=== PATIENT | female | born 1950 | race Caucasian/White ===

== ENCOUNTER 2016-06-24 10:37 | Inpatient (IN) | payer MEDICARE ==
[~2016-06-24] VITALS: Ht 149.9 cm; Wt 88.0 kg
[2016-06-24] VITALS (14 sets, daily range): BP systolic 78–132; BP diastolic 45–85; PULSE 64–102; RESP 16–22; TEMP 97.4–98.1; O2SAT 95–100
[~2016-06-24 10:37] MED LIST: ATEN-102 PO; FLON0.053; HYDR-2768 PO; TYLE3 PO; Z.0.NO CURRENT MEDS; ZITHTAB6 PO
[2016-06-24] MEDS ORDERED: metroNIDAZOLE 500 MG INJ 100 ML IV ONE (11:30)
[2016-06-24] MEDS ORDERED: CIPROFLOXACIN 400 MG PREMIX 200 ML IV ONE (11:30)
[2016-06-24] MEDS ORDERED: SODIUM CHLOR 0.9% 1000 ML INJ 1,000 ML IV ONE ×2 (11:30)
[2016-06-24] MEDS ORDERED: SODIUM CHLORID 0.9% 500 ML INJ 500 ML IV ONE (11:30)
[2016-06-24] MEDS ORDERED: ATEN50TA PO (11:36)
[2016-06-24] MEDS ORDERED: METR250 PO (11:36)
[2016-06-24] MEDS ORDERED: CIPR250T52 PO (11:36)
--- NOTE | 2016-06-24 11:41 | PD ---
HPI Chief Complaint: Abdominal Pain Time Seen by Provider: 11:18 Travel History International Travel<30 days: No Contact w/Intl Traveler<30days: No Traveled to known affect area: No History of Present Illness HPI This is a 66 year old female who presents to the emergency department with left lower quadrant pain, constant since last week, waxing from sharp to dull, moderate severity. Pt. had a CT performed on Friday demonstrating diverticulitis with possible abscess formation. She was started on antibiotics 4 days ago which she has been taking, but this morning felt very weak, fatigued , dehydrated and has been having chills. Pt also has been having some loose stools. PFSH Past Medical History Cardiovascular Problems: Yes (HTN) Diminished Hearing: No Hypertension: Yes Respiratory: Yes (Asthma ) Influenza Vaccination: No ?: Not Menopausal: Yes Past Surgical History Gynecologic Surgery: Yes (RIGHT OVARY REMOVED) Hysterectomy: Yes Tonsillectomy: Yes Social History Alcohol Use: Yes (SOCIAL) Tobacco Use: No Substance Use: No Allergies-Medications (Allergen,Severity, Reaction): Coded Allergies: Penicillin (Verified Allergy, Severe, Anaphylaxis, 06/24/16) Latex (Verified Allergy, Intermediate, ITCH/RASH, 06/24/16) Reported Meds & Prescriptions Reported Meds & Active Scripts Active Reported Flagyl (Metronidazole) 250 Mg Tab 250 Mg PO QID Cipro (Ciprofloxacin HCl) 250 Mg Tab 250 Mg PO BID Atenolol 50 Mg Tab 50 Mg PO DAILY Review of Systems Except as stated in HPI: all other systems reviewed are Neg Physical Exam Narrative GENERAL:Ill appearing SKIN: Pale and clammy HEAD: Atraumatic. Normocephalic. EYES: Pupils equal and round. No injection or drainage. ENT: Dry mucous membranes NECK: Trachea midline. CARDIOVASCULAR: Regular rate and rhythm. No murmur appreciated. RESPIRATORY: Clear to auscultation. Breath sounds equal bilaterally. GASTROINTESTINAL: Abdomen soft, tender to palpation in the left lower quadrant with rebound and guarding. MUSCULOSKELETAL: No obvious deformities. NEUROLOGICAL: Awake and alert. No obvious cranial nerve deficits. Moving all extremities. PSYCHIATRIC: Appropriate mood and affect; insight and judgment normal. Data Data Last Documented VS Vital Signs Date Time Temp Pulse Resp B/P Pulse Ox O2 Delivery O2 Flow Rate FiO2 06/24/16 14:01 74 20 121/66 99 Room Air 06/24/16 13:32 2 06/24/16 11:27 97.4 Orders Complete Blood Count With Diff (06/24/16 11:21) Comprehensive Metabolic Panel (06/24/16 11:21) Prothrombin Time / Inr (Pt) (06/24/16 11:21) Act Partial Throm Time (Ptt) (06/24/16 11:21) Lactic Acid Sepsis Protocol (06/24/16 11:21) Urinalysis - C+S If Indicated (06/24/16 11:21) Blood Culture (06/24/16 11:21) Blood Glucose (06/24/16 11:21) Ecg Monitoring (06/24/16 11:21) Iv Access Insert/Monitor (06/24/16 11:21) Oximetry (06/24/16 11:21) Oxygen Administration (06/24/16 11:21) Sodium Chlor 0.9% 1000 Ml Inj (Ns 1000 M (06/24/16 11:30) Sodium Chlor 0.9% 1000 Ml Inj (Ns 1000 M (06/24/16 11:30) Sodium Chlorid 0.9% 500 Ml Inj (Ns 500 M (06/24/16 11:30) Ciprofloxacin 400 Mg Premix (Cipro 400 M (06/24/16 11:30) Metronidazole 500 Mg Inj (Flagyl 500 Mg (06/24/16 11:30) Ct Abd/Pel W/O Iv Contrast (06/24/16 ) Morphine Inj (Morphine Inj) (06/24/16 12:45) Urine Culture (06/24/16 14:00) Admit Order (Ed Use Only) (06/24/16 14:24) Labs Laboratory Tests Test 06/24/16 06/24/16 11:50 14:00 White Blood Count 12.5 TH/MM3 Red Blood Count 3.75 MIL/MM3 Hemoglobin 11.4 GM/DL Hematocrit 33.5 % Mean Corpuscular Volume 89.2 FL Mean Corpuscular Hemoglobin 30.4 PG Mean Corpuscular Hemoglobin 34.0 % Concent Red Cell Distribution Width 15.0 % Platelet Count 312 TH/MM3 Mean Platelet Volume 9.3 FL Neutrophils (%) (Auto) 91.1 % Lymphocytes (%) (Auto) 2.7 % Monocytes (%) (Auto) 3.3 % Eosinophils (%) (Auto) 0.1 % Basophils (%) (Auto) 2.8 % Neutrophils # (Auto) 11.5 TH/MM3 Lymphocytes # (Auto) 0.3 TH/MM3 Monocytes # (Auto) 0.4 TH/MM3 Eosinophils # (Auto) 0.0 TH/MM3 Basophils # (Auto) 0.3 TH/MM3 CBC Comment AUTO DIFF Differential Total Cells 100 Counted Neutrophils % (Manual) 43 % Band Neutrophils % 39 % Lymphocytes % 3 % Monocytes % 3 % Neutrophils # (Manual) 11.8 TH/MM3 Metamyelocytes 11 % Myelocytes 1 % Differential Comment FINAL DIFF MANUAL Platelet Estimate NORMAL Platelet Morphology Comment NORMAL Red Cell Morphology Comment NORMAL Prothrombin Time 16.5 SEC Prothromb Time International 1.5 RATIO Ratio Activated Partial 35.2 SEC Thromboplast Time Sodium Level 137 MEQ/L Potassium Level 3.5 MEQ/L Chloride Level 99 MEQ/L Carbon Dioxide Level 26.5 MEQ/L Anion Gap 12 MEQ/L Blood Urea Nitrogen 18 MG/DL Creatinine 1.80 MG/DL Estimat Glomerular Filtration 28 ML/MIN Rate Random Glucose 108 MG/DL Lactic Acid Level 2.2 mmol/L Calcium Level 8.9 MG/DL Total Bilirubin 1.3 MG/DL Aspartate Amino Transf 16 U/L (AST/SGOT) Alanine Aminotransferase 9 U/L (ALT/SGPT) Alkaline Phosphatase 80 U/L Total Protein 6.6 GM/DL Albumin 2.3 GM/DL Urine Collection Type CATH Urine Color DONNA Urine Turbidity CLOUDY Urine pH 5.0 Urine Specific [place] 1.019 Urine Protein 100 mg/dL Urine Glucose (UA) 100 mg/dL Urine Ketones TRACE mg/dL Urine Occult Blood NEG Urine Nitrite POS Urine Bilirubin NEG Urine Leukocyte Esterase TRACE Urine RBC 0-3 /hpf Urine WBC 9-14 /hpf Urine Amorphous Sediment LARGE Urine Hyaline Casts 0-2 /lpf Urine White Blood Cell Casts 0-2 /lpf Microscopic Urinalysis Comment CULTURE INDICATED MDM Medical Decision Making Medical Screen Exam Complete: Yes Emergency Medical Condition: Yes Interpretation(s) Hypotensive Leukocytosis 39% bandemia Renal insufficiency creatinine 1.8 Urinalysis: Urinary tract infection Free intraperitoneal air with scattered diverticula Differential Diagnosis Diverticulitis, diverticular abscess, perforated diverticulitis, sepsis Narrative Course This is a 66-year-old female who presents to the emergency department with worsening left lower quadrant abdominal pain in the setting of a known diverticular abscess that was diagnosed several days ago. She's been on antibiotics. She is placed in a monitor and an IV was established. She was found to be hypotensive. She was given Cipro and Flagyl IV up front as well as 2.5 L of IV fluid. Blood pressure responded to IV hydration. CT was performed which demonstrates perforation. I spoke to Dr. Zazueta who accepted the patient in transfer to the main hospital and requested she be admitted to the intensive care unit. I spoke to Dr. Lama who is aware of the patient. Critical Care Narrative Aggregate critical care time was 45 minutes. Time to perform other separately billable procedures was not included in the critical care time. My time did not include minutes spent treating any other patients simultaneously or on activities that did not directly contribute to the patient's treatment. The services I provided to this patient were to treat and/or prevent clinically significant deterioration that could result in: Disability, I provided critical care services requiring my management, as noted below: Chart data review, documentation time, medication orders and management, vital sign assessments/reviewing monitor data, ordering and reviewing lab tests, ordering and interpreting/reviewing x-rays and diagnostic studies, care of the patient and discussion of the patient with the admitting physicians. Diagnosis Primary Impression: Diverticulitis of colon with perforation Additional Impression: Severe sepsis Admitting Information Admitting Physician Requests: Admit Ana Laura Rios MD Jun 24, 2016 11:41
[2016-06-24] MEDS ORDERED: PHENYLEPH/NS 1000 MCG/10 ML SYR IV ONE (12:00)
[2016-06-24] MEDS ORDERED: LACTATED RINGER'S 1000 ML INJ 2,000 ML IV ONE (12:00)
[2016-06-24] MEDS ORDERED: PROPOFOL 200 MG/20 ML AMP IV ONE (12:00)
[2016-06-24] MEDS ORDERED: ONDANSETRON HCL 4 MG/2 ML VIAL IV PUSH ONE (12:00)
[2016-06-24] MEDS ORDERED: ePHEDrine/NS 25 MG/5 ML SYR IV ONE (12:00)
[2016-06-24 12:01] LABS: AUTOMATED NEUTROPHIL # 11.5 TH/MM3 (1.8-7.7); BASOPHIL # 0.3 TH/MM3 (0-0.2); BASOPHIL % 2.8 % (0.0-2.0); EOSINOPHIL % 0.1 % (0.0-4.0); HEMATOCRIT 33.5 % (35.0-46.0); LYMPH % 2.7 % (9.0-44.0); LYMPHOCYTE # 0.3 TH/MM3 (1.0-4.8); MEAN CELL VOLUME 89.2 FL (80.0-100.0); MEAN CORPUSCULAR HEMOGLOBIN 30.4 PG (27.0-34.0); MONO % 3.3 % (0.0-8.0); NEUT % 91.1 % (16.0-70.0); PLATELET COUNT 312 TH/MM3 (150-450); RED BLOOD COUNT 3.75 MIL/MM3 (4.00-5.30); WHITE BLOOD COUNT 12.5 TH/MM3 (4.0-11.0)
[2016-06-24 12:02] LABS: HEMO FLAGS AUTO DIFF
[2016-06-24 12:16] LABS: CHLORIDE 99 MEQ/L (98-107); POTASSIUM 3.5 MEQ/L (3.5-5.1); SODIUM (NA) 137 MEQ/L (136-145)
[2016-06-24 12:20] LABS: ANION GAP 12 MEQ/L (5-15); APTT (PATIENT) 35.2 SEC (24.3-30.1); BICARBONATE 26.5 MEQ/L (21.0-32.0); BLOOD UREA NITROGEN 18 MG/DL (7-18); INTERNATIONAL NORMALIZED RATIO 1.5 RATIO; PROTHROMBIN TIME - PATIENT 16.5 SEC (9.8-11.6)
[2016-06-24 12:23] LABS: ALT (GPT) 9 U/L (10-53); AST (GOT) 16 U/L (15-37); GLOMERULAR FILTRATION RATE 28 ML/MIN (>89)
[2016-06-24 12:24] LABS: TOTAL BILIRUBIN ADULT 1.3 MG/DL (0.2-1.0)
[2016-06-24 12:26] LABS: ALKALINE PHOSPHATASE 80 U/L (45-117)
[2016-06-24] MEDS ORDERED: MORPHINE SULFATE 4 MG/ML INJ IV PUSH ONE ×3 (12:45→15:30)
[2016-06-24 12:48] LABS: BANDS 39 % (0-6); METAMYELOCYTES 11 % (0-1); MYELOCYTES 1 % (0-0); NEUTROPHIL # MANUAL DIFF 11.8 TH/MM3 (1.8-7.7); POLYS (SEG NEUTROPHILS) 43 % (16-70); WBC DIFF SAMPLE 100
[2016-06-24 12:49] LABS: PLATELET ESTIMATE SMEAR NORMAL (NORMAL); PLATELET MORPHOLOGY NORMAL (NORMAL); SCAN/DIFF FINAL DIFF MANUAL
[2016-06-24 13:58] LABS: LACTIC ACID GHOST NOT REPORTABLE
[2016-06-24 14:08] LABS: BLOOD, URINE NEG (NEG); GLUCOSE,URINE 100 mg/dL (NEG); KETONE, URINE TRACE mg/dL (NEG)
[2016-06-24 14:12] LABS: METHOD OF COLLECTION CATH; NITRITE,URINE POS (NEG); URINE COLOR AMBER (YELLW/STRAW)
[2016-06-24 14:14] LABS: COMMENT (UR) CULTURE INDICATED; CULTURE IF INDICATED CULTURE INDICATED; HYALINE CAST, URINE 0-2 /lpf (RARE); RBC, URINE 0-3 /hpf (0-3); WHITE BLOOD CELL CAST, URINE 0-2 /lpf
--- NOTE | 2016-06-24 14:50 | RADHPO ---
EXAM DATE/TIME: 06/24/2016 13:08 [place] COMPARISON: No previous studies available for comparison. INDICATIONS : Left lower quadrant pain for one week. ORAL CONTRAST: No oral contrast ingested. RADIATION DOSE: 22.12 CTDIvol (mGy) MEDICAL HISTORY : Hypertension. SURGICAL HISTORY : Hysterectomy. ENCOUNTER: Initial ACUITY: 1 week PAIN SCALE: 4/10 LOCATION: Left lower quadrant TECHNIQUE: Volumetric scanning of the abdomen and pelvis was performed. Using automated exposure control and ad justment of the mA and/or kV according to patient size, radiation dose was kept as low as reasonably achievable to obtain optimal diagnostic quality images. FINDINGS: There is cardiomegaly. The lung bases are clear. There is no pericardial effusion. Trace ascites is evident. There is trace free air present in the abdomen. This free air extends down into the pelvis. There a re multiple diverticula in the pelvis without obvious diverticulitis. 6 cm pre-sacral abscess is not ed. Right and left kidneys are unremarkable. Review of bone windows reveals degenerative changes in the lumbar spine. CONCLUSION: Free intraperitoneal air with evidence for diverticula disease in the pelvis. CT scan on 06/21/2016 had shown an abscess sitting just anterior to the sacrum. This is still there but more difficult to see because of all the induration. This is probably the source of the free air. Gurdeep Green MD FACR on June 24, 2016 at 13:30 Board Certified Radiologist. This report was verified electronically.
[2016-06-24] MEDS: AZTREONAM INJ 1,000 MG in SODIUM CHLORIDE 0.9% INJ 100 ML IV SCH (16:17)
[2016-06-24] MEDS ORDERED: SODIUM CHLOR 0.9% 1000 ML INJ 1,000 ML IV SCH (18:55)
[2016-06-24] MEDS ORDERED: ACETAMINOPHEN 325 MG TAB PO PRN (19:00)
[2016-06-24] MEDS ORDERED: SODIUM CHLORIDE 0.9% FLUSH 5 ML FLUSH IV FLUSH PRN (19:00)
[2016-06-24] MEDS ORDERED: MORPHINE SULFATE 4 MG/ML INJ IV PRN (19:00)
[2016-06-24] MEDS ORDERED: ONDANSETRON HCL 4 MG/2 ML VIAL IV PRN (19:00)
[2016-06-24] MEDS ORDERED: MISCELLANEOUS NURSING INFORMATION XX SCH (19:00)
[2016-06-24] MEDS ORDERED: CHLORHEXIDINE GLUCONATE 2 % 1 PACK (2 CLOTHS) TOP PRN (19:00)
[2016-06-24] MEDS ORDERED: ACETAMINOPHEN/HYDROcodone 325 MG/5 MG TAB PO PRN (19:00)
--- NOTE | 2016-06-24 19:19 | PD.CONS ---
[facility] Service Critical Care Medicine Consult Requested By Dr. Zazueta Reason for Consult Critical care management/diverticulitis perforation Primary Care Physician Noman Mariscal MD History of Present Illness 66-year-old female. Date of admission 06/24/2016. Date of consultation 06/24/2016. past medical history includes hypertension and asthma. She originally presents to the [facility] emergency department with worsening left lower quadrant abdominal pain 1 month in the setting of a known diverticular abscess that was diagnosed 2 on CAT scan she's been on antibiotics. She has had abdominal pain 1 month. She's shamir urinary tract infection treated 1 with antibiotics. She has had intermittent constipation diarrhea. Upon arrival, She was found to be hypotensive. She was given Cipro 400 mg and Flagyl 500 mg IV and 2.5 L of IV fluid. Blood pressure responded to IV hydration. WBC 12. Creatinine 1.8. CT A/P was performed which demonstrates free air/perforation [address] Zazueta accepted the patient in transfer to the [facility] hospital and requested she be admitted to the intensive care unit. Review of Systems Constitutional: COMPLAINS OF: Fatigue, Fever, Weight loss, DENIES: Weight gain Endocrine: DENIES: Polydipsia, Polyuria Eyes: DENIES: Blurred vision Ears, nose, mouth, throat: DENIES: Odynophagia Respiratory: DENIES: Apneas Cardiovascular: DENIES: Chest pain Gastrointestinal: COMPLAINS OF: Abdominal pain, Constipation, Diarrhea, Nausea , DENIES: Vomiting Genitourinary: DENIES: Urinary frequency Musculoskeletal: DENIES: Joint pain Integumentary: DENIES: Rash Hematologic/lymphatic: DENIES: Bruising Immunologic/allergic: DENIES: Eczema Psychiatric: DENIES: Anxiety, Confusion Past Family Social History Allergies: Coded Allergies: Penicillin (Verified Allergy, Severe, Anaphylaxis, 06/24/16) Latex (Verified Allergy, Intermediate, ITCH/RASH, 06/24/16) Past Medical History Asthma Hypertension Past Surgical History Right oophorectomy Hysterectomy T&A Reported Medications Flagyl (Metronidazole) 250 Mg Tab 250 Mg PO QID Cipro (Ciprofloxacin HCl) 250 Mg Tab 250 Mg PO BID Atenolol 50 Mg Tab 50 Mg PO DAILY Active Ordered Medications Reviewed in EMR Family History Mother and father not contributory Social History Social Alcohol. No tobacco or IV drug use Physical Exam Vital Signs Vital Signs Date Time Temp Pulse Resp B/P Pulse Ox O2 Delivery O2 Flow Rate FiO2 06/24/16 18:44 72 18 100/60 97 Nasal Cannula 2 06/24/16 17:52 72 18 92/45 99 Nasal Cannula 2 06/24/16 17:17 72 18 103/52 96 Nasal Cannula 2 06/24/16 16:38 72 18 88/52 95 Nasal Cannula 2 06/24/16 15:59 16 06/24/16 15:00 72 18 113/85 98 Nasal Cannula 2 06/24/16 14:01 74 20 121/66 99 Room Air 06/24/16 13:32 102 18 100/67 97 Nasal Cannula 2 06/24/16 13:30 16 06/24/16 12:32 70 16 101/62 100 Nasal Cannula 2 06/24/16 12:00 64 16 85/55 100 Nasal Cannula 2 06/24/16 11:27 70 18 80/55 96 Nasal Cannula 2 06/24/16 11:27 97.4 70 18 80/55 96 Room Air 06/24/16 11:27 Nasal Cannula 2 06/24/16 10:59 97.5 73 18 78/50 100 Physical Exam GENERAL: 66-year-old female, critically ill currently resting in bed in mild distress secondary to pain SKIN: Warm and dry. No rash HEAD: Atraumatic. Normocephalic. EYES: Pupils equal and round about 3 mm bilaterally and reactive. No scleral icterus. No injection or drainage. ENT: No nasal bleeding or discharge. Mucous membranes pink and dry. Oropharynx without erythema NECK: Trachea midline. No JVD. CARDIOVASCULAR: Regular rate and rhythm. S1, S2. No S4. Without murmur RESPIRATORY: Clear to auscultation. Breath sounds equal bilaterally. GASTROINTESTINAL: Abdomen soft, tender palpation right and left lower quadrants. Voluntary guarding. No rigidity. Hypoactive bowel sounds. MUSCULOSKELETAL: Extremities without significant peripheral edema. No obvious deformities. NEUROLOGICAL: Awake and alert. No obvious cranial nerve deficits. Motor grossly within normal limits. Five out of 5 muscle strength in the arms and legs. Normal speech. PSYCHIATRIC: Appropriate mood and affect; insight and judgment normal. Laboratory Laboratory Tests Test 06/24/16 06/24/16 06/24/16 11:50 14:00 14:50 White Blood Count 12.5 Red Blood Count 3.75 Hemoglobin 11.4 Hematocrit 33.5 Mean Corpuscular Volume 89.2 Mean Corpuscular Hemoglobin 30.4 Mean Corpuscular Hemoglobin 34.0 Concent Red Cell Distribution Width 15.0 Platelet Count 312 Mean Platelet Volume 9.3 Neutrophils (%) (Auto) 91.1 Lymphocytes (%) (Auto) 2.7 Monocytes (%) (Auto) 3.3 Eosinophils (%) (Auto) 0.1 Basophils (%) (Auto) 2.8 Neutrophils # (Auto) 11.5 Lymphocytes # (Auto) 0.3 Monocytes # (Auto) 0.4 Eosinophils # (Auto) 0.0 Basophils # (Auto) 0.3 CBC Comment AUTO DIFF Differential Total Cells 100 Counted Neutrophils % (Manual) 43 Band Neutrophils % 39 Lymphocytes % 3 Monocytes % 3 Neutrophils # (Manual) 11.8 Metamyelocytes 11 Myelocytes 1 Differential Comment FINAL DIFF MANUAL Platelet Estimate NORMAL Platelet Morphology Comment NORMAL Red Cell Morphology Comment NORMAL Prothrombin Time 16.5 Prothromb Time International 1.5 Ratio Activated Partial 35.2 Thromboplast Time Sodium Level 137 Potassium Level 3.5 Chloride Level 99 Carbon Dioxide Level 26.5 Anion Gap 12 Blood Urea Nitrogen 18 Creatinine 1.80 Estimat Glomerular Filtration 28 Rate Random Glucose 108 Lactic Acid Level 2.2 1.9 Calcium Level 8.9 Total Bilirubin 1.3 Aspartate Amino Transf 16 (AST/SGOT) Alanine Aminotransferase 9 (ALT/SGPT) Alkaline Phosphatase 80 Total Protein 6.6 Albumin 2.3 Urine Collection Type CATH Urine Color DONNA Urine Turbidity CLOUDY Urine pH 5.0 Urine Specific [place] 1.019 Urine Protein 100 Urine Glucose (UA) 100 Urine Ketones TRACE Urine Occult Blood NEG Urine Nitrite POS Urine Bilirubin NEG Urine Leukocyte Esterase TRACE Urine RBC 0-3 Urine WBC 9-14 Urine Amorphous Sediment LARGE Urine Hyaline Casts 0-2 Urine White Blood Cell Casts 0-2 Microscopic Urinalysis Comment CULTURE INDICATED Date/Time Procedure Status Source Growth 06/24/16 14:00 Urine Culture Received Urine Catheterized Urine Pending 06/24/16 12:10 Aerobic Blood Culture Received Blood Peripheral Pending 06/24/16 12:10 Anaerobic Blood Culture Received Blood Peripheral Pending Result Diagram: 06/24/16 1150 06/24/16 1150 Imaging Last Impressions Abdomen/Pelvis CT 06/24/16 0000 Signed Impressions: Service Date/Time: Friday, June 24, 2016 13:08 - CONCLUSION: Free intraperitoneal air with evidence for diverticula disease in the pelvis. CT scan on 06/21/2016 had shown an abscess sitting just anterior to the sacrum. This is still there but more difficult to see because of all the induration. This is probably the source of the free air. Gurdeep Green MD FACR Assessment and Plan Assessment and Plan Neuro/Psych: [place]/morphine for pain management Acetaminophen for fever CV: Lactic acidosis/resolved History of hypertension Received 2.5 L normal saline in route. Procedures 1 L LR. Baseline on normal saline at 84 cc an hour. Currently not requiring vasopressor therapy. Follow-up on EKG Is on atenolol 50 mg by mouth daily at home. Held in light of hypotension Resp: History of asthma Nasal cannula to maintain saturations greater than equal to 92% Incentive spirometry while awake As needed bronchodilator therapy GI: Likely diverticular perforation History of diverticular abscess CT abdomen/pelvis 2/3 revealed free air. 6 cm presacral abscess. See ID for antibiotic coverage. Evaluated with Dr. Zazueta/general surgery. Recommendations to follow Protonix for GI prophylaxis Colace/as needed Senokot for bowel regimen : [place] for accurate I's and O's in a critically ill patient Endo: Sliding-scale insulin if indicated to maintain euglycemia Renal: Acute kidney injury? Likely dehydration/prerenal. Crowding currently 1.8. Will get additional 1 L bolus of LR No signs of hydronephrosis on CAT scan abdomen/pelvis. Check urine eosinophils electrolytes Recheck BMP in a.m. Heme: Leukocytosis Normocytic anemia Likely secondary to infection. CBC/coags in AM. Monitor trends ID: Sepsis secondary to intra-abdominal infection Urinary Tract infection Day 1 Cipro/Flagyl/aztreonam Pertinent cultures 2/3 - blood cultures 2 - pending 2/3 - UA -pending MSK: PT evaluate and treat FEN: Replace electrolytes as clinically indicated Access - Utilize peripheral IV. Central line if indicated Prophylaxis - GI - Protonix - DVT - SCD/pharmacological proph contraindicated poss surg interrvention Critical Care: The total critical care time was 65 minutes. Time to perform other separately billable procedures was not included in the critical care time. Code Status Full code Discussed Condition With Patient. Care plan discussed and all questions answered Anoop Siegel MD Jun 24, 2016 19:19
[2016-06-24] MEDS ORDERED: LACTATED RINGER'S 1000 ML INJ 1,000 ML IV ONE (19:30)
[2016-06-24] MEDS: metroNIDAZOLE 500 MG INJ 100 ML IV SCH (20:24)
[2016-06-24] MEDS ORDERED: SODIUM CHLORIDE 0.9% FLUSH 5 ML FLUSH IV FLUSH SCH (21:00)
[2016-06-24] MEDS ORDERED: ACETAMINOPHEN 1000 MG/100 ML VIAL IV ONE (21:33)
[2016-06-24] MEDS ORDERED: ARTIFICIAL TEARS OPTH OINT 3.5 APPLIC/3.5 GM TUBO ONE (21:48)
--- NOTE | 2016-06-24 22:14 | MH ---
cc: TERRELL ZAZUETA M.D. DATE OF ADMISSION 06/24/2016 REASON FOR ADMISSION Perforated sigmoid diverticulitis. HISTORY OF PRESENT ILLNESS The patient is a 66-year-old female who was noted to have left lower quadrant pain constant since last week. The patient had CT performed on Friday demonstrated diverticulitis with possible abscess formation. She was started on antibiotics four days ago but felt worse, and has been having chills and loose stools. She was seen in [place] and was found to have some small bubbles of free air and increasing pain with a hypotension in the emergency department. She was given 2 liters of fluid by Dr. Rios and resuscitated. PAST MEDICAL HISTORY Includes: 1. Hypertension. 2. History of asthma. PAST SURGICAL HISTORY Past surgery includes: 1. Right ovary removed. 2. And hysterectomy. SOCIAL HISTORY The patient has social alcohol use. She does not smoke or use other substances. ALLERGIES SHE HAS AN ALLERGY TO PENICILLIN WHICH IS SEVERE AND CAUSES ANAPHYLAXIS AND LATEX WHICH CAUSES AN ITCH AND RASH. MEDICATIONS 1. The patient is on Cipro and Flagyl now. 2. She takes atenolol 50 mg p.o. q. day. PHYSICAL EXAMINATION GENERAL: Reveals a female who is uncomfortable. VITAL SIGNS: BP 100/60, pulse 72, respirations 18. 97% saturation on 2 liters nasal cannula. Temperature is 97.4. The patient's pressure was in the 80s initially in [place]. CHEST: Clear to auscultation. CARDIOVASCULAR: Exam reveals regular rate and rhythm. ABDOMEN: Distended and tender diffusely with significant tenderness in the lower abdomen with guarding. LABORATORY DATA Laboratory values demonstrate WBC of 12.5 with 39% bands. Hemoglobin and hematocrit 11.4 and 33.5 with 312,000 platelets. Chemistries demonstrate BUN of 18, creatinine of 1.8, bilirubin is 1.3, alkaline phos 80. Lactate level was 2.2 is now decreased to 1.9. IMAGING Demonstrates free intraperitoneal air with evidence for diverticular disease. There was an abscess just anterior to the sacrum. It is still there but more difficult to see because of induration. This is undrainable according to Dr. Green who I reviewed the CT scan with. ASSESSMENT Perforated sigmoid diverticulitis with worsening symptoms. PLAN I have discussed with the patient and her and daughter who is a nurse, the need for urgent surgery at this time given the fact that she is deteriorating. I discussed with them the need for sigmoid colectomy and temporary colostomy placement. A discussed risks of surgery including but not limited to bleeding, the increased risk of infection with wound infection and abscess formation, as well as adhesion formation. I did discuss that this is a reversible event and discussed with her convalescence and alternatives. I did not recommend that we wait and manage this nonoperatively. She is agreeable to proceed. Terrell Zazueta MD MAF/KK /9:50 PM /10:04 PM
[2016-06-24] MEDS: BUPIVACAINE/EPINEPHRINE 0.25% PF 30 ML VIAL ONE (22:19)
[2016-06-25] VITALS (14 sets, daily range): BP systolic 105–139; BP diastolic 53–63; PULSE 75–83; RESP 15–24; TEMP 97.8–98.4; O2SAT 96–99
[2016-06-25] MEDS: D5-NS + KCL 20 MEQ INJ 1,000 ML IV SCH ×3 (00:16→09:50)
--- NOTE | 2016-06-25 00:16 | HHI.PR ---
cc: Emmett Zazueta MD Immediate Post Op Note Procedure Date: Jun 25, 2016 Pre Op Diagnosis: Perforated diverticulitis Post Op Diagnosis: Same vs. perforated neoplasm Surgeon: Emmett Zazueta Power Manager(s): Migdalia Padilla MS3 Procedure: Exploratory laparotomy, sigmoid resection, end colostomy with Awad's pouch Findings: Pelvic mass adherent to right side of colon; abscess vs. tumor Additional Information: Large amount purulent material in abdomen Complications: None Specimen(s) removed: Sigmoid colon Right ovarian remnant Estimated blood loss: 100 ml Anesthesia: General Drains: [place] IVF (2000 ml) Patient to: PACU Patient Condition: Good Date/Time of Procedure: SEE SURGICAL CARE RECORD Emmett Zazueta MD Jun 25, 2016 00:15
[2016-06-25] MEDS ORDERED: SUGAMMADEX SODIUM 200 MG/2 ML VIAL IV PUSH ONE ×2 (00:20)
[2016-06-25] MEDS ORDERED: RESP: ALBUTEROL 2.5 MG/3 ML NEB (PRN) ONE (00:20)
[2016-06-25] MEDS ORDERED: Post-op Orders (for Pharmacy) MISC XX ONE (00:30)
[2016-06-25] MEDS ORDERED: DO NOT ADM ANY ANTICOAGULANT DRUGS XX PRN (00:45)
[2016-06-25] MEDS ORDERED: fentaNYL CITRATE 250 MCG/5 ML AMP ONE (00:46)
[2016-06-25] MEDS: MORPHINE SULFATE 30 MG/30 ML PCA IV SCH ×2 (02:27→13:27)
[2016-06-25] MEDS: AZTREONAM INJ 1,000 MG in SODIUM CHLORIDE 0.9% INJ 100 ML IV SCH ×4 (02:33→23:50)
[2016-06-25] MEDS: PANTOPRAZOLE SODIUM 40 MG VIAL IV SCH (02:34)
[2016-06-25] MEDS: CHLORHEXIDINE GLUCONATE 2 % 1 PACK (2 CLOTHS) TOP SCH (04:00)
[2016-06-25 05:04] LABS: AUTOMATED NEUTROPHIL # 12.8 TH/MM3 (1.8-7.7); BASOPHIL % 0.1 % (0.0-2.0); EOSINOPHIL # 0.1 TH/MM3 (0-0.4); EOSINOPHIL % 0.7 % (0.0-4.0); HEMATOCRIT 28.1 % (35.0-46.0); HEMO FLAGS DIFF FINAL; LYMPH % 2.1 % (9.0-44.0); LYMPHOCYTE # 0.3 TH/MM3 (1.0-4.8); MEAN CELL VOLUME 89.8 FL (80.0-100.0); MEAN CORPUSCULAR HGB CONC 33.4 % (32.0-36.0); MONO % 1.4 % (0.0-8.0); NEUT % 95.7 % (16.0-70.0); PLATELET COUNT 258 TH/MM3 (150-450); RED BLOOD COUNT 3.12 MIL/MM3 (4.00-5.30); RED CELL DISTRIBUTION WIDTH 16.1 % (11.6-17.2); WHITE BLOOD COUNT 13.3 TH/MM3 (4.0-11.0)
[2016-06-25] MEDS: RESP: ALBUTEROL 2.5 MG/IPRATROPIUM 0.5 MG NEB (PRN) INH ×3 (05:13→15:25)
[2016-06-25 05:15] LABS: APTT (PATIENT) 39.9 SEC (24.3-30.1); INTERNATIONAL NORMALIZED RATIO 1.8 RATIO; PROTHROMBIN TIME - PATIENT 20.4 SEC (9.8-11.6)
[2016-06-25 05:28] LABS: ALKALINE PHOSPHATASE 50 U/L (45-117); ALT (GPT) 8 U/L (10-53); ANION GAP 9 MEQ/L (5-15); AST (GOT) 15 U/L (15-37); BICARBONATE 24.7 MEQ/L (21.0-32.0); BLOOD UREA NITROGEN 23 MG/DL (7-18); CHLORIDE 103 MEQ/L (98-107); GLOMERULAR FILTRATION RATE 31 ML/MIN (>89); MAGNESIUM 1.7 MG/DL (1.5-2.5); SODIUM (NA) 137 MEQ/L (136-145); TOTAL BILIRUBIN ADULT 0.6 MG/DL (0.2-1.0)
[2016-06-25] MEDS: metroNIDAZOLE 500 MG INJ 100 ML IV SCH ×3 (05:39→20:53)
[2016-06-25] MEDS: PCA - TOTAL MG MORPHINE DELIVERED PER SHIFT SCH ×3 (06:00→22:00)
[2016-06-25] MEDS: CIPROFLOXACIN 400 MG PREMIX 200 ML IV SCH ×2 (08:43→20:53)
[2016-06-25] MEDS: SODIUM CHLORIDE 0.9% FLUSH 5 ML FLUSH IVF SCH ×2 (08:43→20:53)
[2016-06-25] MEDS ORDERED: PANTOPRAZOLE SODIUM 40 MG VIAL IV SCH (09:00)
--- NOTE | 2016-06-25 09:50 | HHI.CCPN ---
Subjective Remarks/Hospital Course 66-year-old female. Date of admission 06/24/2016. Date of consultation 06/24/2016. past medical history includes hypertension and asthma. She originally presents to the [facility] emergency department with worsening left lower quadrant abdominal pain 1 month in the setting of a known diverticular abscess that was diagnosed 2/ on CAT scan she's been on antibiotics. She has had abdominal pain 1 month. urinary tract infection treated 1 with antibiotics. She has had intermittent constipation diarrhea. Upon arrival, She was found to be hypotensive. She was given Cipro 400 mg and Flagyl 500 mg IV and 2.5 L of IV fluid. Blood pressure responded to IV hydration. WBC 12. Creatinine 1.8. CT A/P was performed which demonstrates free air/perforation [address] Zazueta accepted the patient in transfer to the main hospital and requested she be admitted to the intensive care unit. SUBJ 06/25: Pain controlled. Urine output adequate overnight, creatinine improved from 1.8-1.6. Not requiring pressors Objective Vital Signs Date Time Temp Pulse Resp B/P Pulse Ox O2 Delivery O2 Flow Rate FiO2 06/25/16 08:00 97.8 76 16 107/60 97 06/25/16 07:00 Nasal Cannula 2.00 Intake and Output 06/24/16 06/24/16 06/25/16 08:00 16:00 00:00 Intake Total 1000 ml Balance 1000 ml Result Diagram: 06/25/16 0439 06/25/16 0439 Imaging Last Impressions Abdomen/Pelvis CT 06/24/16 0000 Signed Impressions: Service Date/Time: Friday, June 24, 2016 13:08 - CONCLUSION: Free intraperitoneal air with evidence for diverticula disease in the pelvis. CT scan on 06/21/2016 had shown an abscess sitting just anterior to the sacrum. This is still there but more difficult to see because of all the induration. This is probably the source of the free air. Gurdeep Green MD FACR Objective Remarks GENERAL: 66-year-old female, currently resting in bed in mild distress secondary to pain SKIN: Warm and dry. No rash HEAD: Atraumatic. Normocephalic. EYES: Pupils equal and round about 3 mm bilaterally and reactive. No scleral icterus. No injection or drainage. ENT: No nasal bleeding or discharge. Mucous membranes pink and dry. NECK: Trachea midline. No JVD. CARDIOVASCULAR: Regular rate and rhythm. S1, S2. No S4. Without murmur RESPIRATORY: Clear to auscultation. Breath sounds equal bilaterally. GASTROINTESTINAL: Abdomen soft, tender palpation right and left lower quadrants. Voluntary guarding. No rigidity. Hypoactive bowel sounds. s/p end colostomy with Awad's pouch MUSCULOSKELETAL: Extremities without significant peripheral edema. No obvious deformities. NEUROLOGICAL: Awake and alert. No obvious cranial nerve deficits. Motor grossly within normal limits. Five out of 5 muscle strength in the arms and legs. Normal speech. PSYCHIATRIC: Appropriate mood and affect; insight and judgment normal. A/P Assessment and Plan Neuro/Psych: Hendrix/morphine for pain management Acetaminophen for fever CV: Lactic acidosis/resolved History of hypertension Received 2.5 L normal saline in route. Procedures 1 L LR. Now receiving 1L NS bolus Baseline on normal saline at 84 cc an hour. Currently not requiring vasopressor therapy. Follow-up on EKG Is on atenolol 50 mg by mouth daily at home. Held in light of hypotension Resp: History of asthma Nasal cannula to maintain saturations greater than equal to 92% Incentive spirometry while awake As needed bronchodilator therapy GI: Diverticular perforation, probable pelvic mass vs abscess History of diverticular abscess CT abdomen/pelvis 06/21 revealed free air. 6 cm presacral abscess. s/p Exploratory laparotomy, sigmoid resection, end colostomy with Awad's pouch by Dr. Zazueta 06/24/16 Findings: Pelvic mass adherent to right side of colon; abscess vs. tumor. Large amount purulent material in abdomen See ID for antibiotic coverage. Evaluated with Dr. Zazueta/general surgery. Recommendations to follow Protonix for GI prophylaxis Colace/as needed Senokot for bowel regimen : Singletary for accurate I's and O's in a critically ill patient Endo: Sliding-scale insulin if indicated to maintain euglycemia Renal: Acute kidney injury Likely dehydration/prerenal. Cr currently 1.6, trending down. Continue maintenance IV fluids No signs of hydronephrosis on CAT scan abdomen/pelvis. F/u urine eosinophils electrolytes Recheck BMP in a.m. Heme: Leukocytosis Normocytic anemia Likely secondary to infection. CBC/coags in AM. Monitor trends ID: Sepsis secondary to intra-abdominal infection Urinary Tract infection Day 2 Cipro/Flagyl/aztreonam Pertinent cultures 2/3 - blood cultures 2 - pending 2/3 - UA -pending MSK: PT evaluate and treat FEN: Replace electrolytes as clinically indicated Access - Utilize peripheral IV. Central line if indicated Prophylaxis - GI - Protonix - DVT - SCD/pharmacological proph Start today if ok with Dr. Zazueta Critical Care: Level 3 CCM will follow Alan Gil MD Jun 25, 2016 09:50 Alan Gil MD Jun 25, 2016 09:50
--- NOTE | 2016-06-25 10:52 | HHI.PR ---
Subjective Subjective Notes Somewhat painful but pain is less now Objective Vitals/I&O Vital Signs Date Time Temp Pulse Resp B/P Pulse Ox O2 Delivery O2 Flow Rate FiO2 06/25/16 10:00 76 06/25/16 08:00 97.8 16 107/60 97 06/25/16 07:00 Nasal Cannula 2.00 Labs Laboratory Tests Test 06/24/16 06/24/16 06/24/16 06/25/16 11:50 14:00 14:50 02:51 White Blood Count 12.5 Red Blood Count 3.75 Hemoglobin 11.4 Hematocrit 33.5 Mean Corpuscular Volume 89.2 Mean Corpuscular Hemoglobin 30.4 Mean Corpuscular Hemoglobin 34.0 Concent Red Cell Distribution Width 15.0 Platelet Count 312 Mean Platelet Volume 9.3 Neutrophils (%) (Auto) 91.1 Lymphocytes (%) (Auto) 2.7 Monocytes (%) (Auto) 3.3 Eosinophils (%) (Auto) 0.1 Basophils (%) (Auto) 2.8 Neutrophils # (Auto) 11.5 Lymphocytes # (Auto) 0.3 Monocytes # (Auto) 0.4 Eosinophils # (Auto) 0.0 Basophils # (Auto) 0.3 CBC Comment AUTO DIFF Differential Total Cells 100 Counted Neutrophils % (Manual) 43 Band Neutrophils % 39 Lymphocytes % 3 Monocytes % 3 Neutrophils # (Manual) 11.8 Metamyelocytes 11 Myelocytes 1 Differential Comment FINAL DIFF MANUAL Platelet Estimate NORMAL Platelet Morphology Comment NORMAL Red Cell Morphology Comment NORMAL Prothrombin Time 16.5 Prothromb Time International 1.5 Ratio Activated Partial 35.2 Thromboplast Time Sodium Level 137 Potassium Level 3.5 Chloride Level 99 Carbon Dioxide Level 26.5 Anion Gap 12 Blood Urea Nitrogen 18 Creatinine 1.80 Estimat Glomerular Filtration 28 Rate Random Glucose 108 Lactic Acid Level 2.2 1.9 Calcium Level 8.9 Total Bilirubin 1.3 Aspartate Amino Transf 16 (AST/SGOT) Alanine Aminotransferase 9 (ALT/SGPT) Alkaline Phosphatase 80 Total Protein 6.6 Albumin 2.3 Urine Collection Type CATH Urine Color DONNA Urine Turbidity CLOUDY Urine pH 5.0 Urine Specific [place] 1.019 Urine Protein 100 Urine Glucose (UA) 100 Urine Ketones TRACE Urine Occult Blood NEG Urine Nitrite POS Urine Bilirubin NEG Urine Leukocyte Esterase TRACE Urine RBC 0-3 Urine WBC 9-14 Urine Amorphous Sediment LARGE Urine Hyaline Casts 0-2 Urine White Blood Cell Casts 0-2 Microscopic Urinalysis Comment CULTURE INDICATED Urine Eosinophils NONE SEEN Nasal Screen MRSA (PCR) NEGATIVE Test 06/25/16 04:39 White Blood Count 13.3 Red Blood Count 3.12 Hemoglobin 9.4 Hematocrit 28.1 Mean Corpuscular Volume 89.8 Mean Corpuscular Hemoglobin 30.0 Mean Corpuscular Hemoglobin 33.4 Concent Red Cell Distribution Width 16.1 Platelet Count 258 Mean Platelet Volume 9.6 Neutrophils (%) (Auto) 95.7 Lymphocytes (%) (Auto) 2.1 Monocytes (%) (Auto) 1.4 Eosinophils (%) (Auto) 0.7 Basophils (%) (Auto) 0.1 Neutrophils # (Auto) 12.8 Lymphocytes # (Auto) 0.3 Monocytes # (Auto) 0.2 Eosinophils # (Auto) 0.1 Basophils # (Auto) 0.0 CBC Comment DIFF FINAL Differential Comment Prothrombin Time 20.4 Prothromb Time International 1.8 Ratio Activated Partial 39.9 Thromboplast Time Sodium Level 137 Potassium Level 4.0 Chloride Level 103 Carbon Dioxide Level 24.7 Anion Gap 9 Blood Urea Nitrogen 23 Creatinine 1.67 Estimat Glomerular Filtration 31 Rate Random Glucose 180 Lactic Acid Level 1.5 Calcium Level 7.6 Phosphorus Level 4.4 Magnesium Level 1.7 Total Bilirubin 0.6 Aspartate Amino Transf 15 (AST/SGOT) Alanine Aminotransferase 8 (ALT/SGPT) Alkaline Phosphatase 50 Total Protein 5.3 Albumin 1.7 Date/Time Procedure Status Source Growth 06/24/16 22:22 Gram Stain Received Fluid Peritoneal Fluid Pending 06/24/16 22:22 Body Fluid Culture Received Fluid Peritoneal Fluid Pending 06/24/16 14:00 Urine Culture Received Urine Catheterized Urine Pending 06/24/16 12:10 Aerobic Blood Culture Received Blood Peripheral Pending 06/24/16 12:10 Anaerobic Blood Culture Received Blood Peripheral Pending Abdomen: Post-op tenderness Narrative Exam ALEYDA dressing in place with minimal drainage Colostomy dark with small amount of stool at opening ISRAEL drain with cloudy red drainage A/P Assessment and Plan Assessment: POD #1 exp lap/sigmoid resection with colostomy/Awad's pouch Improved after surgery Urine output adequate Plan: Monitor urine output/pulmonary status today Transfer to floor in AM if stable night Await pathology report and Gram stain Emmett Zazueta MD Jun 25, 2016 10:52
--- NOTE | 2016-06-25 17:05 | EKG ---
Date Performed: 06/24/2016 Time Performed: 21:31:30 PTAGE: 66 years EKG: Sinus rhythm . Poor R wave progression - probable normal variant Borderline ECG NO PREVIOUS TRACING DOCTOR: Agus Saldana Interpretating Date/Time 06/25/2016 17:00:23
[2016-06-26] VITALS (12 sets, daily range): BP systolic 110–150; BP diastolic 58–74; PULSE 73–90; RESP 10–21; TEMP 97.9–98.7; O2SAT 94–99
[2016-06-26] MEDS: CHLORHEXIDINE GLUCONATE 2 % 1 PACK (2 CLOTHS) TOP SCH (01:00)
[2016-06-26] MEDS: D5-NS + KCL 20 MEQ INJ 1,000 ML IV SCH ×3 (01:14→16:45)
[2016-06-26] MEDS: PANTOPRAZOLE SODIUM 40 MG VIAL IV SCH (01:33)
[2016-06-26] MEDS: metroNIDAZOLE 500 MG INJ 100 ML IV SCH ×3 (04:21→20:03)
[2016-06-26 05:58] LABS: AUTOMATED NEUTROPHIL # 14.1 TH/MM3 (1.8-7.7); BASOPHIL % 0.1 % (0.0-2.0); HEMATOCRIT 27.2 % (35.0-46.0); LYMPH % 2.2 % (9.0-44.0); LYMPHOCYTE # 0.3 TH/MM3 (1.0-4.8); MEAN CORPUSCULAR HEMOGLOBIN 29.5 PG (27.0-34.0); MEAN CORPUSCULAR HGB CONC 32.8 % (32.0-36.0); NEUT % 95.7 % (16.0-70.0); PLATELET COUNT 268 TH/MM3 (150-450); RED BLOOD COUNT 3.02 MIL/MM3 (4.00-5.30); RED CELL DISTRIBUTION WIDTH 16.6 % (11.6-17.2); WHITE BLOOD COUNT 14.7 TH/MM3 (4.0-11.0)
[2016-06-26] MEDS: PCA - TOTAL MG MORPHINE DELIVERED PER SHIFT SCH (06:00)
[2016-06-26 06:05] LABS: HEMO FLAGS AUTO DIFF
[2016-06-26] MEDS: ACETAMINOPHEN 1000 MG/100 ML VIAL IV PRN ×3 (06:09→20:04)
[2016-06-26 06:14] LABS: ALKALINE PHOSPHATASE 57 U/L (45-117); ALT (GPT) 9 U/L (10-53); ANION GAP 10 MEQ/L (5-15); AST (GOT) 16 U/L (15-37); BICARBONATE 22.1 MEQ/L (21.0-32.0); BLOOD UREA NITROGEN 28 MG/DL (7-18); CHLORIDE 110 MEQ/L (98-107); GLOMERULAR FILTRATION RATE 45 ML/MIN (>89); POTASSIUM 4.1 MEQ/L (3.5-5.1); SODIUM (NA) 142 MEQ/L (136-145); TOTAL BILIRUBIN ADULT 0.3 MG/DL (0.2-1.0)
[2016-06-26 07:58] LABS: BANDS 7 % (0-6); METAMYELOCYTES 1 % (0-1); NEUTROPHIL # MANUAL DIFF 14.3 TH/MM3 (1.8-7.7); POLYS (SEG NEUTROPHILS) 89 % (16-70); SCAN/DIFF FINAL DIFF MANUAL; WBC DIFF SAMPLE 100
[2016-06-26 07:59] LABS: PLATELET ESTIMATE SMEAR NORMAL (NORMAL); PLATELET MORPHOLOGY NORMAL (NORMAL)
[2016-06-26] MEDS: CIPROFLOXACIN 400 MG PREMIX 200 ML IV SCH ×2 (08:30→21:23)
[2016-06-26] MEDS: SODIUM CHLORIDE 0.9% FLUSH 5 ML FLUSH IVF SCH ×2 (08:30→21:23)
[2016-06-26] MEDS: HYDROmorphone HCL PF 1 MG/ML VIAL IV PRN ×5 (08:47→20:58)
[2016-06-26] MEDS: AZTREONAM INJ 1,000 MG in SODIUM CHLORIDE 0.9% INJ 100 ML IV SCH ×2 (08:49→16:45)
--- NOTE | 2016-06-26 13:50 | MP ---
cc: TERRELL BELCHER M.D. DATE OF SURGERY: 06/24/2016 PREOPERATIVE DIAGNOSIS Perforated diverticulitis. POSTOPERATIVE DIAGNOSIS Perforated diverticulitis. PROCEDURE Exploratory laparotomy with sigmoid resection and colostomy and Gene's pouch. ANESTHESIA General endotracheal. SURGEON Marbin ESTIMATED BLOOD LOSS 100 mL. FLUIDS 2000 mL crystalloid. COMPLICATIONS None. DRAINS ISRAEL x1. SPECIMENS 1. Sigmoid colon to pathology. 2. Right ovarian remnant to pathology. 3. Gram stain and C&S of peritoneal fluid. FINDINGS Pelvic mass with a large amount of purulent material within the abdomen. PROCEDURE IN DETAIL The patient was taken to the operating room and placed on the operating table in the supine position. After an adequate level of general endotracheal anesthesia was achieved, the abdomen was prepped and draped in the usual fashion. A timeout was taken confirming the correct patient, site and procedure to be performed. A midline incision was made from the symphysis pubis to just above the umbilicus. The peritoneal cavity was directly entered and cloudy fluid was immediately encountered. This was cultured and the fluid was aspirated as much as possible. When this had been completed the abdomen was explored. A large mass was seen down in the pelvis. There was no evidence of duodenal perforation or other intra-abdominal pathology. The sigmoid colon was mobilized up along part of the white line of Toldt. The colon was divided in the descending colon and successive clamping and ligation with silk suture was accomplished. Dissection was carried out down into the pelvis below the area in question. An abnormal right ovary was encountered and this was excised and passed off the table for specimen analysis. The colon was then divided distal to the mass effect which was removed with some blunt dissection. The specimen was marked with silk sutures and passed off the table after dividing this of portion of the colon with the Contour stapler. The rectal stump was marked with a Prolene suture and the specimen was passed off the table. The pelvis was irrigated and a laparotomy sponge was left down in the pelvis for hemostasis. Attention was then turned to formation of the colostomy after irrigation of the abdominal cavity with approximately two liters of irrigation. The colostomy was brought out through a separate incision in the left lower abdomen. The colostomy was brought through the rectus musculature. The descending colon was fixed to the fascia at two points to prevent retraction and at this point a ISRAEL drain was placed into the abdomen and brought out via a separate stab incision in the right mid abdomen. This was affixed to the skin with a 3-0 nylon suture. The abdomen was then closed with a running #1 PDS suture that was looped. The skin was loosely closed with rell and the colostomy was matured with 3-0 Vicryl suture. Due to the patient's large body habitus the colostomy could not be brought through with much excess and was essentially flat to the skin. At this point a colostomy appliance was applied and a ALEYDA dressing applied to the wound. A 4x4 was applied around the Neymar-Pereira drain. The patient was extubated and taken back to the recovery room in stable condition. Sponge, needle and instrument counts were reported be correct. MD APRIL Whitehead/EMILY /8:14 AM /1:39 PM
--- NOTE | 2016-06-26 17:45 | HHI.PR ---
Subjective Subjective Notes Feeling better this afternoon; had idiosyncratic reaction to morphine - became agitated. Pain control adequate with dilaudid; still slightly anxious. Objective Vitals/I&O Vital Signs Date Time Temp Pulse Resp B/P Pulse Ox O2 Delivery O2 Flow Rate FiO2 06/26/16 16:00 84 06/26/16 16:00 98.7 12 150/72 94 06/26/16 08:50 21 06/26/16 07:30 Nasal Cannula 2.00 Labs Laboratory Tests Test 06/26/16 04:24 White Blood Count 14.7 Red Blood Count 3.02 Hemoglobin 8.9 Hematocrit 27.2 Mean Corpuscular Volume 90.0 Mean Corpuscular Hemoglobin 29.5 Mean Corpuscular Hemoglobin 32.8 Concent Red Cell Distribution Width 16.6 Platelet Count 268 Mean Platelet Volume 9.6 Neutrophils (%) (Auto) 95.7 Lymphocytes (%) (Auto) 2.2 Monocytes (%) (Auto) 2.0 Eosinophils (%) (Auto) 0.0 Basophils (%) (Auto) 0.1 Neutrophils # (Auto) 14.1 Lymphocytes # (Auto) 0.3 Monocytes # (Auto) 0.3 Eosinophils # (Auto) 0.0 Basophils # (Auto) 0.0 CBC Comment AUTO DIFF Differential Total Cells 100 Counted Neutrophils % (Manual) 89 Band Neutrophils % 7 Lymphocytes % 1 Monocytes % 2 Neutrophils # (Manual) 14.3 Metamyelocytes 1 Differential Comment FINAL DIFF MANUAL Platelet Estimate NORMAL Platelet Morphology Comment NORMAL Sodium Level 142 Potassium Level 4.1 Chloride Level 110 Carbon Dioxide Level 22.1 Anion Gap 10 Blood Urea Nitrogen 28 Creatinine 1.19 Estimat Glomerular Filtration 45 Rate Random Glucose 163 Calcium Level 7.6 Magnesium Level 2.0 Total Bilirubin 0.3 Aspartate Amino Transf 16 (AST/SGOT) Alanine Aminotransferase 9 (ALT/SGPT) Alkaline Phosphatase 57 Total Protein 5.8 Albumin 1.8 Date/Time Procedure Status Source Growth 06/24/16 22:22 Gram Stain - Final Resulted Fluid Peritoneal Fluid 06/24/16 22:22 Body Fluid Culture - Preliminary Resulted Gram Negative Americo 06/24/16 14:00 Urine Culture - Final Complete Urine Catheterized Urine NO GROWTH IN 48 HOURS. 06/24/16 12:10 Aerobic Blood Culture - Preliminary Resulted Blood Peripheral NO GROWTH IN 2 DAYS 06/24/16 12:10 Anaerobic Blood Culture - Preliminary Resulted Blood Peripheral NO GROWTH IN 2 DAYS Lungs: Clear Abdomen: Non-distended, Post-op tenderness Narrative Exam ALEYDA dressing in place with minimal drainage Colostomy dark with small amount of stool at opening ISRAEL drain with cloudy red drainage A/P Assessment and Plan Assessment: POD #2 exp lap/sigmoid resection with colostomy/Awad's pouch Improved after surgery Urine output adequate Plan: Transfer to floor as soon as bed available. Await pathology report and Gram stain - Gram neg americo and gram pos cocci in pairs Emmett Zazueta MD Jun 26, 2016 17:45
[2016-06-26] MEDS: diphenhydrAMINE HCL 50 MG/ML VIAL IV SCH (21:24)
[2016-06-27] VITALS: BP 116/57; PULSE 74; RESP 15; TEMP 97.9; O2SAT 95
[2016-06-27] MEDS: D5-NS + KCL 20 MEQ INJ 1,000 ML IV SCH ×3 (00:16→16:41)
[2016-06-27] MEDS: HYDROmorphone HCL PF 1 MG/ML VIAL IV PRN ×9 (01:40→22:28)
[2016-06-27] MEDS: PANTOPRAZOLE SODIUM 40 MG VIAL IV SCH (01:40)
[2016-06-27 02:00] VITALS: BP 152/70; PULSE 89; RESP 19; TEMP 98.3; O2SAT 95
[2016-06-27] MEDS: CHLORHEXIDINE GLUCONATE 2 % 1 PACK (2 CLOTHS) TOP SCH (03:42)
[2016-06-27] MEDS: diphenhydrAMINE HCL 50 MG/ML VIAL IV PRN ×2 (04:46→17:55)
[2016-06-27] MEDS: metroNIDAZOLE 500 MG INJ 100 ML IV SCH ×3 (04:47→22:14)
[2016-06-27 05:04] LABS: AUTOMATED NEUTROPHIL # 9.4 TH/MM3 (1.8-7.7); BASOPHIL % 0.1 % (0.0-2.0); EOSINOPHIL % 0.5 % (0.0-4.0); HEMATOCRIT 27.5 % (35.0-46.0); LYMPH % 4.5 % (9.0-44.0); LYMPHOCYTE # 0.5 TH/MM3 (1.0-4.8); MEAN CELL VOLUME 91.3 FL (80.0-100.0); MEAN CORPUSCULAR HEMOGLOBIN 29.5 PG (27.0-34.0); MEAN CORPUSCULAR HGB CONC 32.3 % (32.0-36.0); MONO % 1.9 % (0.0-8.0); PLATELET COUNT 246 TH/MM3 (150-450); RED BLOOD COUNT 3.01 MIL/MM3 (4.00-5.30); RED CELL DISTRIBUTION WIDTH 16.8 % (11.6-17.2); WHITE BLOOD COUNT 10.1 TH/MM3 (4.0-11.0)
[2016-06-27 05:08] LABS: HEMO FLAGS AUTO DIFF
[2016-06-27 05:27] LABS: BICARBONATE 22.2 MEQ/L (21.0-32.0); POTASSIUM 4.3 MEQ/L (3.5-5.1)
[2016-06-27] MEDS: ACETAMINOPHEN 1000 MG/100 ML VIAL IV PRN ×3 (06:47→18:47)
[2016-06-27 07:07] LABS: BANDS 5 % (0-6); NEUTROPHIL # MANUAL DIFF 9.5 TH/MM3 (1.8-7.7); PLATELET ESTIMATE SMEAR NORMAL (NORMAL); PLATELET MORPHOLOGY NORMAL (NORMAL); POLYS (SEG NEUTROPHILS) 89 % (16-70); SCAN/DIFF FINAL DIFF MANUAL; WBC DIFF SAMPLE 100
[2016-06-27] MEDS: SODIUM CHLORIDE 0.9% FLUSH 5 ML FLUSH IVF SCH ×2 (07:46→21:00)
[2016-06-27] MEDS: CIPROFLOXACIN 400 MG PREMIX 200 ML IV SCH ×2 (07:51→22:14)
[2016-06-27 08:00] VITALS: BP 157/76; PULSE 84; RESP 17; TEMP 97.9; O2SAT 95
[2016-06-27 12:00] VITALS: BP 148/85; PULSE 82; RESP 18; TEMP 97.6; O2SAT 98
[2016-06-27] MEDS ORDERED: BENZOCAINE-MENTHOL (SUGAR FREE) 15 MG-3.6 MG LOZENGE BUCCAL PRN (17:45)
--- NOTE | 2016-06-27 17:56 | HHI.PR ---
Subjective Subjective Notes stable over night, c/o eye iching, throat irritation Objective Vitals/I&O Vital Signs Date Time Temp Pulse Resp B/P Pulse Ox O2 Delivery O2 Flow Rate FiO2 06/27/16 12:00 97.6 82 18 148/85 98 06/26/16 19:00 Room Air 96 06/26/16 07:30 2.00 Labs Laboratory Tests Test 06/27/16 03:53 White Blood Count 10.1 Red Blood Count 3.01 Hemoglobin 8.9 Hematocrit 27.5 Mean Corpuscular Volume 91.3 Mean Corpuscular Hemoglobin 29.5 Mean Corpuscular Hemoglobin 32.3 Concent Red Cell Distribution Width 16.8 Platelet Count 246 Mean Platelet Volume 9.3 Neutrophils (%) (Auto) 93.0 Lymphocytes (%) (Auto) 4.5 Monocytes (%) (Auto) 1.9 Eosinophils (%) (Auto) 0.5 Basophils (%) (Auto) 0.1 Neutrophils # (Auto) 9.4 Lymphocytes # (Auto) 0.5 Monocytes # (Auto) 0.2 Eosinophils # (Auto) 0.0 Basophils # (Auto) 0.0 CBC Comment AUTO DIFF Differential Total Cells 100 Counted Neutrophils % (Manual) 89 Band Neutrophils % 5 Lymphocytes % 4 Monocytes % 2 Neutrophils # (Manual) 9.5 Differential Comment FINAL DIFF MANUAL Platelet Estimate NORMAL Platelet Morphology Comment NORMAL Sodium Level 144 Potassium Level 4.3 Chloride Level 114 Carbon Dioxide Level 22.2 Anion Gap 8 Blood Urea Nitrogen 19 Creatinine 0.85 Estimat Glomerular Filtration 67 Rate Random Glucose 122 Calcium Level 7.9 Date/Time Procedure Status Source Growth 06/24/16 22:22 Gram Stain - Final Resulted Fluid Peritoneal Fluid 06/24/16 22:22 Body Fluid Culture - Preliminary Resulted Escherichia Coli 06/24/16 14:00 Urine Culture - Final Complete Urine Catheterized Urine NO GROWTH IN 48 HOURS. 06/24/16 12:10 Aerobic Blood Culture - Preliminary Resulted Blood Peripheral NO GROWTH IN 3 DAYS 06/24/16 12:10 Anaerobic Blood Culture - Preliminary Resulted Blood Peripheral NO GROWTH IN 3 DAYS Cardiovascular: Regular Abdomen: Other (soft mild ttp, incision with aleyda poor seal, midline drainage, no sign of infection, ostomy dark viable, sweat in bag, ESSIE serous ) A/P Assessment and Plan POD 3 Hartmans pouch for perforated diverticulitis PLAN ALEYDA removed 4x4s placed keep hernandez for Is and Os will remove tomorrow benign pathology reviewed with patient keep in consider clamp tomorrow monitor ostomy and output essie to sxn bulb-serous output dvt ppx encourage IS encourage oob to chair Manny Dixon MD Jun 27, 2016 17:56
[2016-06-27 20:00] VITALS: BP 176/96; PULSE 96; RESP 19; TEMP 97.2; O2SAT 95
[2016-06-27] MEDS: diphenhydrAMINE HCL 50 MG/ML VIAL IV SCH (22:15)
[2016-06-28] VITALS (9 sets, daily range): BP systolic 151–218; BP diastolic 76–100; PULSE 81–97; RESP 18–20; TEMP 96–97.3; O2SAT 91–96
[2016-06-28] MEDS: D5-NS + KCL 20 MEQ INJ 1,000 ML IV SCH ×3 (00:59→17:36)
[2016-06-28] MEDS: HYDROmorphone HCL PF 1 MG/ML VIAL IV PRN ×9 (02:18→22:07)
[2016-06-28] MEDS: PANTOPRAZOLE SODIUM 40 MG VIAL IV SCH (02:18)
[2016-06-28] MEDS: CHLORHEXIDINE GLUCONATE 2 % 1 PACK (2 CLOTHS) TOP SCH (04:00)
[2016-06-28] MEDS: metroNIDAZOLE 500 MG INJ 100 ML IV SCH ×2 (05:27→12:48)
[2016-06-28] MEDS: CIPROFLOXACIN 400 MG PREMIX 200 ML IV SCH (08:25)
[2016-06-28] MEDS: SODIUM CHLORIDE 0.9% FLUSH 5 ML FLUSH IVF SCH ×2 (08:26→20:06)
[2016-06-28] MEDS: SODIUM CHLORIDE 0.9% FLUSH 5 ML FLUSH IVF PRN ×2 (08:42→12:47)
[2016-06-28] MEDS: ONDANSETRON HCL 4 MG/2 ML VIAL IV PRN (08:42)
[2016-06-28 10:50] LABS: AUTOMATED NEUTROPHIL # 12.9 TH/MM3 (1.8-7.7); BASOPHIL % 0.1 % (0.0-2.0); EOSINOPHIL % 0.2 % (0.0-4.0); HEMATOCRIT 29.2 % (35.0-46.0); LYMPHOCYTE # 0.6 TH/MM3 (1.0-4.8); MEAN CELL VOLUME 89.2 FL (80.0-100.0); MEAN CORPUSCULAR HEMOGLOBIN 28.8 PG (27.0-34.0); MEAN CORPUSCULAR HGB CONC 32.2 % (32.0-36.0); MONO % 2.6 % (0.0-8.0); NEUT % 93.1 % (16.0-70.0); PLATELET COUNT 233 TH/MM3 (150-450); RED BLOOD COUNT 3.27 MIL/MM3 (4.00-5.30); RED CELL DISTRIBUTION WIDTH 16.8 % (11.6-17.2); WHITE BLOOD COUNT 13.9 TH/MM3 (4.0-11.0)
[2016-06-28 10:53] LABS: HEMO FLAGS AUTO DIFF
[2016-06-28 11:13] LABS: BICARBONATE 29.1 MEQ/L (21.0-32.0)
[2016-06-28 11:42] LABS: BANDS 7 % (0-6); EOSINOPHILS 1 % (0-4); METAMYELOCYTES 3 % (0-1); NEUTROPHIL # MANUAL DIFF 12.1 TH/MM3 (1.8-7.7); POLYS (SEG NEUTROPHILS) 77 % (16-70); WBC DIFF SAMPLE 100
[2016-06-28 11:43] LABS: PLATELET ESTIMATE SMEAR NORMAL (NORMAL); PLATELET MORPHOLOGY NORMAL (NORMAL); SCAN/DIFF FINAL DIFF MANUAL
[2016-06-28] MEDS: ACETAMINOPHEN 1000 MG/100 ML VIAL IV PRN (14:02)
[2016-06-28] MEDS ORDERED: CEFEPIME INJ 2,000 MG in SODIUM CHLORIDE 0.9% INJ 100 ML IV SCH (16:15)
[2016-06-28] MEDS ORDERED: ASP: Documented allergy to Penicillins or Cephalosporins XX SCH (17:00)
[2016-06-28] MEDS: ENALAPRILAT 2.5 MG/2 ML VIAL IV PUSH PRN (18:35)
[2016-06-28] MEDS: ERTAPENEM 1,000 MG/NS 100 ML IV SCH ×2 (18:37)
[2016-06-28] MEDS: diphenhydrAMINE HCL 50 MG/ML VIAL IV SCH (20:04)
--- NOTE | 2016-06-28 22:04 | HHI.PR ---
Subjective Subjective Notes no acute issues, c/o pain but controlled, seen sitting in chair Objective Vitals/I&O Vital Signs Date Time Temp Pulse Resp B/P Pulse Ox O2 Delivery O2 Flow Rate FiO2 06/28/16 20:00 97.3 91 18 174/92 96 06/28/16 17:49 21 06/26/16 19:00 Room Air 06/26/16 07:30 2.00 Labs Laboratory Tests Test 06/28/16 10:35 White Blood Count 13.9 Red Blood Count 3.27 Hemoglobin 9.4 Hematocrit 29.2 Mean Corpuscular Volume 89.2 Mean Corpuscular Hemoglobin 28.8 Mean Corpuscular Hemoglobin 32.2 Concent Red Cell Distribution Width 16.8 Platelet Count 233 Mean Platelet Volume 8.9 Neutrophils (%) (Auto) 93.1 Lymphocytes (%) (Auto) 4.0 Monocytes (%) (Auto) 2.6 Eosinophils (%) (Auto) 0.2 Basophils (%) (Auto) 0.1 Neutrophils # (Auto) 12.9 Lymphocytes # (Auto) 0.6 Monocytes # (Auto) 0.4 Eosinophils # (Auto) 0.0 Basophils # (Auto) 0.0 CBC Comment AUTO DIFF Differential Total Cells 100 Counted Neutrophils % (Manual) 77 Band Neutrophils % 7 Lymphocytes % 7 Monocytes % 5 Eosinophils % 1 Neutrophils # (Manual) 12.1 Metamyelocytes 3 Differential Comment FINAL DIFF MANUAL Platelet Estimate NORMAL Platelet Morphology Comment NORMAL Sodium Level 142 Potassium Level 4.0 Chloride Level 107 Carbon Dioxide Level 29.1 Anion Gap 6 Blood Urea Nitrogen 9 Creatinine 0.61 Estimat Glomerular Filtration 98 Rate Random Glucose 138 Calcium Level 7.8 Date/Time Procedure Status Source Growth 06/24/16 22:22 Gram Stain - Final Complete Fluid Peritoneal Fluid 06/24/16 22:22 Body Fluid Culture - Final Complete Escherichia Coli 06/24/16 14:00 Urine Culture - Final Complete Urine Catheterized Urine NO GROWTH IN 48 HOURS. 06/24/16 12:10 Aerobic Blood Culture - Preliminary Resulted Blood Peripheral NO GROWTH IN 4 DAYS 06/24/16 12:10 Anaerobic Blood Culture - Preliminary Resulted Blood Peripheral NO GROWTH IN 4 DAYS Cardiovascular: Regular Lungs: Clear Abdomen: Other (incisional tenderness, ostomy dark- brown sweat in bag, midline c/d/i, essie serous) A/P Assessment and Plan POD 4 Hartmans pouch for perforated diverticulitis PLAN dressing change prn d/c hernandez benign pathology reviewed with patient NG clamp today monitor ostomy and output essie to sxn bulb-serous output dvt ppx encourage IS encourage oob to chair ok for ice chips Manny Dixon MD Jun 28, 2016 22:04
[2016-06-29] VITALS (7 sets, daily range): BP systolic 134–182; BP diastolic 76–102; PULSE 78–97; RESP 19–20; TEMP 95.6–98.4; O2SAT 93–97
[2016-06-29] MEDS: PANTOPRAZOLE SODIUM 40 MG VIAL IV SCH
[2016-06-29] MEDS: CHLORHEXIDINE GLUCONATE 2 % 1 PACK (2 CLOTHS) TOP SCH (00:04)
[2016-06-29] MEDS: D5-NS + KCL 20 MEQ INJ 1,000 ML IV SCH ×3 (00:04→15:49)
[2016-06-29] MEDS: HYDROmorphone HCL PF 1 MG/ML VIAL IV PRN ×11 (03:30→22:11)
[2016-06-29] MEDS: ENALAPRILAT 2.5 MG/2 ML VIAL IV PUSH PRN (03:51)
[2016-06-29] MEDS: ACETAMINOPHEN 1000 MG/100 ML VIAL IV PRN (04:27)
[2016-06-29] MEDS: SODIUM CHLORIDE 0.9% FLUSH 5 ML FLUSH IVF SCH ×2 (07:36→21:00)
--- NOTE | 2016-06-29 10:32 | HHI.PR ---
Subjective Subjective Notes htn this am, burping, no nausea, sweat in ostomy bag, nno fevers Objective Vitals/I&O Vital Signs Date Time Temp Pulse Resp B/P Pulse Ox O2 Delivery O2 Flow Rate FiO2 06/29/16 08:04 17 06/29/16 08:00 95.6 91 182/89 96 06/28/16 17:49 21 06/26/16 19:00 Room Air 06/26/16 07:30 2.00 Labs Laboratory Tests Test 06/28/16 10:35 White Blood Count 13.9 Red Blood Count 3.27 Hemoglobin 9.4 Hematocrit 29.2 Mean Corpuscular Volume 89.2 Mean Corpuscular Hemoglobin 28.8 Mean Corpuscular Hemoglobin 32.2 Concent Red Cell Distribution Width 16.8 Platelet Count 233 Mean Platelet Volume 8.9 Neutrophils (%) (Auto) 93.1 Lymphocytes (%) (Auto) 4.0 Monocytes (%) (Auto) 2.6 Eosinophils (%) (Auto) 0.2 Basophils (%) (Auto) 0.1 Neutrophils # (Auto) 12.9 Lymphocytes # (Auto) 0.6 Monocytes # (Auto) 0.4 Eosinophils # (Auto) 0.0 Basophils # (Auto) 0.0 CBC Comment AUTO DIFF Differential Total Cells 100 Counted Neutrophils % (Manual) 77 Band Neutrophils % 7 Lymphocytes % 7 Monocytes % 5 Eosinophils % 1 Neutrophils # (Manual) 12.1 Metamyelocytes 3 Differential Comment FINAL DIFF MANUAL Platelet Estimate NORMAL Platelet Morphology Comment NORMAL Sodium Level 142 Potassium Level 4.0 Chloride Level 107 Carbon Dioxide Level 29.1 Anion Gap 6 Blood Urea Nitrogen 9 Creatinine 0.61 Estimat Glomerular Filtration 98 Rate Random Glucose 138 Calcium Level 7.8 Date/Time Procedure Status Source Growth 06/24/16 22:22 Gram Stain - Final Complete Fluid Peritoneal Fluid 06/24/16 22:22 Body Fluid Culture - Final Complete Escherichia Coli 06/24/16 14:00 Urine Culture - Final Complete Urine Catheterized Urine NO GROWTH IN 48 HOURS. 06/24/16 12:10 Aerobic Blood Culture - Preliminary Resulted Blood Peripheral NO GROWTH IN 4 DAYS 06/24/16 12:10 Anaerobic Blood Culture - Preliminary Resulted Blood Peripheral NO GROWTH IN 4 DAYS Cardiovascular: Regular Lungs: Clear Abdomen: Other (incision scant drainage , no sign of infection, ostomy dark, sweat in bag) A/P Assessment and Plan POD 5 Hartmans pouch for perforated diverticulitis PLAN dressing change prn benign pathology reviewed with patient NG clamp today- will continue to aspirate, possible d/c ng tomorrow monitor ostomy and output essie to sxn bulb-serous output dvt ppx encourage IS encourage oob to chair ok for ice chips PO htn meds Manny Dixon MD Jun 29, 2016 10:32
[2016-06-29] MEDS: ATENOLOL 50 MG TAB PO SCH (11:21)
[2016-06-29 13:03] LABS: MEAN CELL VOLUME 89.8 FL (80.0-100.0); MEAN CORPUSCULAR HEMOGLOBIN 29.7 PG (27.0-34.0); MEAN CORPUSCULAR HGB CONC 33.1 % (32.0-36.0); PLATELET COUNT 262 TH/MM3 (150-450); RED BLOOD COUNT 3.46 MIL/MM3 (4.00-5.30); RED CELL DISTRIBUTION WIDTH 17.1 % (11.6-17.2); REVIEW FLAG FINAL; WHITE BLOOD COUNT 14.5 TH/MM3 (4.0-11.0)
[2016-06-29] MEDS: ERTAPENEM 1,000 MG/NS 100 ML IV SCH ×2 (18:17)
[2016-06-29] MEDS: diphenhydrAMINE HCL 50 MG/ML VIAL IV SCH (20:12)
[2016-06-30] VITALS: BP 180/78; PULSE 74; RESP 20; TEMP 98.1; O2SAT 95
[2016-06-30] MEDS: HYDROmorphone HCL PF 1 MG/ML VIAL IV PRN ×4 (00:14→07:56)
[2016-06-30] MEDS: ENALAPRILAT 2.5 MG/2 ML VIAL IV PUSH PRN ×4 (00:14→22:25)
[2016-06-30] MEDS: D5-NS + KCL 20 MEQ INJ 1,000 ML IV SCH ×3 (00:24→16:10)
[2016-06-30] MEDS: PANTOPRAZOLE SODIUM 40 MG VIAL IV SCH (02:19)
[2016-06-30 04:00] VITALS: BP 188/89; PULSE 79; RESP 20; TEMP 97.6; O2SAT 93
[2016-06-30] MEDS: CHLORHEXIDINE GLUCONATE 2 % 1 PACK (2 CLOTHS) TOP SCH (04:00)
[2016-06-30 07:04] LABS: MEAN CELL VOLUME 88.1 FL (80.0-100.0); MEAN CORPUSCULAR HEMOGLOBIN 29.5 PG (27.0-34.0); MEAN CORPUSCULAR HGB CONC 33.5 % (32.0-36.0); PLATELET COUNT 265 TH/MM3 (150-450); RED BLOOD COUNT 3.29 MIL/MM3 (4.00-5.30); RED CELL DISTRIBUTION WIDTH 16.8 % (11.6-17.2); REVIEW FLAG FINAL; WHITE BLOOD COUNT 12.2 TH/MM3 (4.0-11.0)
[2016-06-30] MEDS: ATENOLOL 50 MG TAB PO SCH (07:55)
[2016-06-30] MEDS: SODIUM CHLORIDE 0.9% FLUSH 5 ML FLUSH IVF SCH ×2 (07:56→21:00)
[2016-06-30 08:00] VITALS: BP 150/80; PULSE 86; RESP 18; TEMP 97.4; O2SAT 93
--- NOTE | 2016-06-30 09:42 | HHI.PR ---
Subjective Subjective Notes no acute issues, npo with ice ng clamped, no nausea, minimal gas in ostomy bag, in chair not ambulating much Objective Vitals/I&O Vital Signs Date Time Temp Pulse Resp B/P Pulse Ox O2 Delivery O2 Flow Rate FiO2 06/30/16 08:00 97.4 86 18 150/80 93 06/29/16 11:01 21 06/26/16 19:00 Room Air 06/26/16 07:30 2.00 Labs Laboratory Tests Test 06/29/16 06/30/16 12:48 06:00 White Blood Count 14.5 12.2 Red Blood Count 3.46 3.29 Hemoglobin 10.3 9.7 Hematocrit 31.0 29.0 Mean Corpuscular Volume 89.8 88.1 Mean Corpuscular Hemoglobin 29.7 29.5 Mean Corpuscular Hemoglobin 33.1 33.5 Concent Red Cell Distribution Width 17.1 16.8 Platelet Count 262 265 Mean Platelet Volume 8.9 9.1 Abdomen: Other (incision well approx with rell, ostomy dark minimal gas in bag, essie serous ) A/P Assessment and Plan POD 6 Hartmans pouch for perforated diverticulitis PLAN dressing change prn benign pathology reviewed with patient d/c NG today monitor ostomy and output essie to sxn bulb-serous output dvt ppx encourage IS encourage oob to chair, pt needs to ambulate ok for ice chips PO Pain meds, decrease dilaudid frequency Manny Dixon MD Jun 30, 2016 09:42
[2016-06-30] MEDS ORDERED: HYDROmorphone HCL PF 1 MG/ML VIAL IV PRN (11:15)
[2016-06-30] MEDS: oxyCODONE/ACETAMINOPHEN 5 MG/325 MG TAB PO PRN ×3 (11:23→22:26)
[2016-06-30] MEDS: KETOROLAC TROMETHAMINE 30 MG/ML (IVP) VIAL IV PUSH PRN ×2 (11:23→17:32)
[2016-06-30 12:00] VITALS: BP 164/74; PULSE 73; RESP 17; TEMP 97; O2SAT 95
[2016-06-30 12:43] LABS: BICARBONATE 30.1 MEQ/L (21.0-32.0); POTASSIUM 3.8 MEQ/L (3.5-5.1)
[2016-06-30 16:00] VITALS: BP 170/70; PULSE 73; RESP 17; TEMP 96; O2SAT 96
[2016-06-30] MEDS: ERTAPENEM 1,000 MG/NS 100 ML IV SCH ×2 (16:10)
[2016-06-30 20:00] VITALS: BP 189/54; PULSE 71; RESP 17; TEMP 97.4; O2SAT 96
[2016-06-30] MEDS: diphenhydrAMINE HCL 50 MG/ML VIAL IV SCH (22:25)
[2016-07-01] VITALS (7 sets, daily range): BP systolic 165–196; BP diastolic 62–89; PULSE 65–73; RESP 17–20; TEMP 96.4–98.8; O2SAT 95–100
[2016-07-01] MEDS: PANTOPRAZOLE SODIUM 40 MG VIAL IV SCH (01:32)
[2016-07-01] MEDS: D5-NS + KCL 20 MEQ INJ 1,000 ML IV SCH ×3 (01:32→17:25)
[2016-07-01] MEDS: CHLORHEXIDINE GLUCONATE 2 % 1 PACK (2 CLOTHS) TOP SCH (03:07)
[2016-07-01] MEDS: oxyCODONE/ACETAMINOPHEN 5 MG/325 MG TAB PO PRN ×4 (03:07→21:04)
[2016-07-01] MEDS: ENALAPRILAT 2.5 MG/2 ML VIAL IV PUSH PRN ×2 (05:52→11:12)
[2016-07-01] MEDS: SODIUM CHLORIDE 0.9% FLUSH 5 ML FLUSH IVF SCH ×2 (08:14→21:02)
[2016-07-01] MEDS: ATENOLOL 50 MG TAB PO SCH (08:14)
--- NOTE | 2016-07-01 09:55 | HHI.PR ---
Subjective Subjective Notes Up to chair; painful when getting out of bed but otherwise controlled Tolerating ice chips Objective Vitals/I&O Vital Signs Date Time Temp Pulse Resp B/P Pulse Ox O2 Delivery O2 Flow Rate FiO2 07/01/16 07:37 97.8 72 19 184/82 96 06/29/16 11:01 21 Labs Laboratory Tests Test 06/30/16 11:25 Sodium Level 141 Potassium Level 3.8 Chloride Level 105 Carbon Dioxide Level 30.1 Anion Gap 6 Blood Urea Nitrogen 6 Creatinine 0.48 Estimat Glomerular Filtration 129 Rate Random Glucose 122 Calcium Level 7.7 Cardiovascular: Regular Lungs: Clear Abdomen: Other (large incision c/d/i; ISRAEL with SS drainage; colostomy with minimal drainage ) Extremities: Other (generlized edema ) A/P Assessment and Plan 66 year old female POD7 end colostomy/Awad's pouch for perforated diverticulitis -Dry dressing daily and PRN -Start sips of clears -Monitor ostomy and output -Continue ISRAEL -Encourage IS -Encourage mobilization; PT following -Pain control -Discussed with Dr. Zazueta Attending Note - Dr. Zazueta Abdominal wound clean and dry; rell intact without erythema Discussed with patient and family Will need to go to rehab, not straight home; not strong enough Abdominal binder for comfort Gloria Kaba Jul 01, 2016 09:55 Emmett Zazueta MD Jul 01, 2016 19:59
[2016-07-01] MEDS: ERTAPENEM 1,000 MG/NS 100 ML IV SCH ×2 (17:28)
[2016-07-01] MEDS: diphenhydrAMINE HCL 50 MG/ML VIAL IV SCH (21:02)
[2016-07-02] VITALS: BP 178/82; PULSE 69; TEMP 96.9; O2SAT 96
[2016-07-02] MEDS: ENALAPRILAT 2.5 MG/2 ML VIAL IV PUSH PRN
[2016-07-02] MEDS: PANTOPRAZOLE SODIUM 40 MG VIAL IV SCH (00:56)
[2016-07-02] MEDS: D5-NS + KCL 20 MEQ INJ 1,000 ML IV SCH ×2 (01:40→17:56)
[2016-07-02] MEDS: oxyCODONE/ACETAMINOPHEN 5 MG/325 MG TAB PO PRN ×5 (01:43→20:01)
[2016-07-02] MEDS: CHLORHEXIDINE GLUCONATE 2 % 1 PACK (2 CLOTHS) TOP SCH (04:00)
[2016-07-02 08:00] VITALS: BP 142/73; PULSE 68; RESP 20; TEMP 97.9; O2SAT 95
[2016-07-02 08:40] VITALS: PULSE 68
[2016-07-02] MEDS: ATENOLOL 50 MG TAB PO SCH (08:57)
[2016-07-02] MEDS: SODIUM CHLORIDE 0.9% FLUSH 5 ML FLUSH IVF SCH ×2 (08:58→20:01)
--- NOTE | 2016-07-02 10:36 | HHI.PR ---
Subjective Subjective Notes Just waking up Had a good night's rest Objective Vitals/I&O Vital Signs Date Time Temp Pulse Resp B/P Pulse Ox O2 Delivery O2 Flow Rate FiO2 07/02/16 08:00 97.9 68 20 142/73 95 06/29/16 11:01 21 Cardiovascular: Regular Lungs: Clear Abdomen: Other (colostomy in place with minimal liquid drainage; ISRAEL with SS fluid; midline incision c/d/i ), Post-op tenderness Extremities: Other (gen edema ) A/P Assessment and Plan 66 year old female POD8 Awad's pouch for perforated diverticulitis -Dry dressing daily and PRN -Continue sips of clears -Monitor ostomy and output -Continue ISRAEL---monitor output -Encourage IS -Encourage mobilization; PT following -Pain control -Discussed with Dr. Zazueta -CM consult---spoke with patient's daughter Carolyne ([phone]) and she would like her mother to go to [facility] for rehab Attending Note - Dr. Zazueta Wound clean and dry, rell intact Minimal stoma output still, but no nausea. Wound care/ostomy nurse present; will likely need flush appliance due to stoma May advance diet to full liquids tomorrow if no nausea overnight. The exam, history, and the medical decision-making described in the above note were completed with the assistance of the mid-level provider. I reviewed and agree with the findings presented. I attest that I had a avzz-uw-brii encounter with the patient on the same day, and personally performed and documented my assessment and findings in the medical record. Gloria Kaba Jul 02, 2016 10:35 Emmett Zazueta MD Jul 02, 2016 23:25
[2016-07-02 12:00] VITALS: BP 149/73; PULSE 68; RESP 19; TEMP 97.9; O2SAT 96
[2016-07-02 17:00] VITALS: BP 153/77; PULSE 65; RESP 19; TEMP 97.8; O2SAT 98
[2016-07-02] MEDS: ENOXAPARIN SODIUM 40 MG/0.4 ML SYRINGE SQ SCH (17:55)
[2016-07-02] MEDS: ERTAPENEM 1,000 MG/NS 100 ML IV SCH ×2 (18:01)
[2016-07-02] MEDS: diphenhydrAMINE HCL 50 MG/ML VIAL IV SCH (20:00)
[2016-07-02] MEDS: FAMOTIDINE 20 MG TAB PO SCH (20:01)
[2016-07-02 20:19] VITALS: BP 163/79; PULSE 69; RESP 18; TEMP 96.3; O2SAT 97
[2016-07-03 00:15] VITALS: BP 165/77; PULSE 72; RESP 17; TEMP 97.5; O2SAT 95
[2016-07-03] MEDS: oxyCODONE/ACETAMINOPHEN 5 MG/325 MG TAB PO PRN ×6 (00:16→23:28)
[2016-07-03] MEDS: CHLORHEXIDINE GLUCONATE 2 % 1 PACK (2 CLOTHS) TOP SCH (04:00)
[2016-07-03 08:00] VITALS: BP 166/74; PULSE 72; RESP 18; TEMP 97.3; O2SAT 95
[2016-07-03] MEDS: ATENOLOL 50 MG TAB PO SCH (08:16)
[2016-07-03] MEDS: FAMOTIDINE 20 MG TAB PO SCH ×2 (08:17→20:40)
[2016-07-03] MEDS: SODIUM CHLORIDE 0.9% FLUSH 5 ML FLUSH IVF SCH ×2 (08:17→20:41)
[2016-07-03 08:30] VITALS: PULSE 72
[2016-07-03 12:00] VITALS: BP 153/71; PULSE 58; RESP 20; TEMP 96.5; O2SAT 95
--- NOTE | 2016-07-03 13:44 | HHI.PR ---
Subjective Subjective Notes Assisted Mrs. Soni to the restroom during visit today---able to ambulate with minimal assistance Objective Vitals/I&O Vital Signs Date Time Temp Pulse Resp B/P Pulse Ox O2 Delivery O2 Flow Rate FiO2 07/03/16 12:00 96.5 58 20 153/71 95 07/03/16 08:30 Room Air 06/29/16 11:01 21 Cardiovascular: Regular Lungs: Clear Abdomen: Other (midline incision---stapled without drainage; ISRAEL with serous drainage; Colostomy with stool ) Extremities: Other (gen edema ) A/P Assessment and Plan 66 year old female POD9 Awad's pouch for perforated diverticulitis -Dry dressing daily and PRN -Advance to fulls today -Monitor ostomy and output -Continue ISRAEL---monitor output -Encourage IS -Encourage mobilization; PT following -Pain control -Discussed with Dr. Zazueta - consult---patient too high functioning for [facility]---will continue the search for a SNF Attending Note - Dr. Zazueta Wound clean and dry ISRAEL output cloudy/ approx 60 ml/16 hrs Colostomy with stool in pouch Ostomy nurse saw patient and daughter today and placed new appliance OK for transfer to [facility] tomorrow if tolerating diet, as she is not using IV pain meds. Convert to PO antibiotics. Discussed with patient and daughter (by phone). The exam, history, and the medical decision-making described in the above note were completed with the assistance of the mid-level provider. I reviewed and agree with the findings presented. I attest that I had a [id number]-fm-ulkh encounter with the patient on the same day, and personally performed and documented my assessment and findings in the medical record. Gloria Kaba Jul 03, 2016 13:44 Emmett Zazueta MD Jul 03, 2016 20:44
[2016-07-03 16:00] VITALS: BP 154/74; PULSE 70; RESP 16; TEMP 96.6; O2SAT 95
[2016-07-03] MEDS: ERTAPENEM 1,000 MG/NS 100 ML IV SCH ×2 (17:19)
[2016-07-03] MEDS: ENOXAPARIN SODIUM 40 MG/0.4 ML SYRINGE SQ SCH (17:19)
[2016-07-03 20:00] VITALS: BP 166/88; PULSE 66; RESP 17; TEMP 99; O2SAT 98
[2016-07-03] MEDS: D5-NS + KCL 20 MEQ INJ 1,000 ML IV SCH (20:40)
[2016-07-03] MEDS: diphenhydrAMINE HCL 50 MG/ML VIAL IV SCH (20:40)
[2016-07-03] MEDS ORDERED: PERC5TAB12 PO (20:45)
[2016-07-03] MEDS: SULFAMETHOXAZOLE-TRIMETHOPRIM DS 800-160 MG TAB PO SCH (23:28)
[2016-07-04 00:21] VITALS: BP 164/82; PULSE 68; RESP 17; TEMP 96.2; O2SAT 95
[2016-07-04] MEDS: diphenhydrAMINE HCL 50 MG/ML VIAL IV PRN (02:46)
[2016-07-04] MEDS: CHLORHEXIDINE GLUCONATE 2 % 1 PACK (2 CLOTHS) TOP SCH (04:00)
[2016-07-04] MEDS: oxyCODONE/ACETAMINOPHEN 5 MG/325 MG TAB PO PRN ×2 (07:23→15:21)
[2016-07-04 08:00] VITALS: BP 183/83; PULSE 84; RESP 16; TEMP 97; O2SAT 94
[2016-07-04] MEDS: SODIUM CHLORIDE 0.9% FLUSH 5 ML FLUSH IVF SCH (09:00)
[2016-07-04] MEDS: FAMOTIDINE 20 MG TAB PO SCH (09:23)
[2016-07-04] MEDS: ATENOLOL 50 MG TAB PO SCH (09:23)
[2016-07-04] MEDS: SULFAMETHOXAZOLE-TRIMETHOPRIM DS 800-160 MG TAB PO SCH (09:23)
[2016-07-04] MEDS: ONDANSETRON HCL 4 MG/2 ML VIAL IV PRN (11:43)
[2016-07-04 12:00] VITALS: BP 155/76; PULSE 68; RESP 17; TEMP 98.1; O2SAT 94
[2016-07-04] MEDS ORDERED: BACT800T5 PO (13:41)
--- NOTE | 2016-08-20 11:04 | HHI.DS ---
Discharge Summary Admission Date Jun 24, 2016 at 14:25 Discharge Date: Jul 04, 2016 Admitting Diagnosis perforated diverticulitis Brief History 66 year old female s/p Awad's pouch for perforated diverticulitis PE at Discharge Alert and awake Cardio: RRR Resp: CTAB ALEYDA dressing in place with minimal drainage Colostomy dark with stool in collection bag Hospital Course This is a 66 year old female POD9 Awad's pouch for perforated diverticulitis. The patient's pain was controlled using oral pain medications. The patient was able to tolerate a soft diet. The patient will be DCed to rehab for improved strength and mobility. She will follow up in the office. Pt Condition on Discharge: Good Discharge Disposition: Discharge to SNF Discharge Instructions DIET: Follow Instructions for: As Tolerated, No Restrictions Activities you can perform: See Additionl Instruction Other Activity Instructions: Routine colostomy care and teaching Gloria Kaba Aug 20, 2016 11:04
== END 2016-07-04 16:47 | DRG 854 ==
LOC: PHED 10:37 → PHEDA 14:25 → N03B 19:00 → N07B 06-27 01:55
PROVIDERS: ADMIT Surgery Trauma Surgery; ATTEND Surgery Trauma Surgery
PROC: 0D1M0Z4 Bypass Descending Colon to Cutaneous, Open Approach (ICD-10-PCS; 2016-06-24)
PROC: 0DTN0ZZ Resection of Sigmoid Colon, Open Approach (ICD-10-PCS; principal; 2016-06-24 21:50)
PROC: 0UT00ZZ Resection of Right Ovary, Open Approach (ICD-10-PCS; 2016-06-24 21:50)
DX: A41.9 Sepsis, unspecified organism (principal); K57.20 Diverticulitis of large intestine with perforation and abscess without bleeding; N17.9 Acute kidney failure, unspecified; E87.2 Acidosis; I95.9 Hypotension, unspecified; N39.0 Urinary tract infection, site not specified; N83.201 Unspecified ovarian cyst, right side; E86.0 Dehydration; R19.00 Intra-abdominal and pelvic swelling, mass and lump, unspecified site; I10 Essential (primary) hypertension; J45.909 Unspecified asthma, uncomplicated; D64.9 Anemia, unspecified; R45.1 Restlessness and agitation; T40.2X5A Adverse effect of other opioids, initial encounter; Y92.239 Unspecified place in hospital as the place of occurrence of the external cause; Z88.0 Allergy status to penicillin; Z91.040 Latex allergy status
CPT/HCPCS: 74176; 76937; 80048; 80053; 81001; 82570; 83605; 83735; 84100; 84300; 85007; 85025; 85027; 85610; 85730; 87040; 87070; 87077; 87086; 87186; 87205; 87641; 88305; 88307; 93005; 94150; 94640; 94664; 96361; 96365; 96368; 96374; C9113; J0131; J0744; J1170; J1200; J1335; J1650; J1885; J2270; J2370; J2405; J3010; J3480; J7030; J7040; J7120; J7613

== ENCOUNTER → 2016-08-27 | Outpatient (CLI) | payer MEDICARE ==
[~2016-08-27] MED LIST changes: -ATEN-102 PO; +ATEN50TA PO; +BACT800T5 PO; +CIPR250T52 PO; -FLON0.053; -HYDR-2768 PO; +METR250 PO; +PERC5TAB12 PO; -TYLE3 PO; -Z.0.NO CURRENT MEDS; -ZITHTAB6 PO
--- NOTE | 2016-08-27 10:38 | RADRPT ---
EXAM DATE/TIME: 08/27/2016 09:40 [facility] COMPARISON: CT ABDOMEN & PELVIS W/O CONTRAST, June 24, 2016, 13:08. INDICATIONS : Evaluate for leaks. Colostomy takedown. FLUORO TIME: 2.5 minutes IMAGE COUNT: 17 CONTRAST: 1. Polibar ACB Barium Sulfate (96% w/w) MEDICAL HISTORY : Diverticulitis. SURGICAL HISTORY : Colostomy. ENCOUNTER: Initial ACUITY: 3 months PAIN SCORE: 3/10 LOCATION: Abdomen, lower quadrant. FINDINGS: Asphalt Still Operator view the abdomen demonstrates a nonobstructive bowel gas pattern, left lower quadrant ostomy, d egenerative changes of the spine and surgical clips in the right lower quadrant. There is suture mate rial overlying the pelvis. A balloon tip catheter was inserted into the rectum, and barium was instil led under fluoroscopic control. Barium flows into the pouch without difficulty. Contrast column terminates at the level of the staple line. There is no extravasation of contrast. Next, the stoma was catheterized, and contrast instille d in a retrograde fashion via gravity drainage. There is good filling of the descending colon proxima lly, transverse colon and ascending colon with contrast seen extending into the distal ileum. No high -grade stenoses are identified.. There are no fixed polypoid filling defects or annular constricting lesions identified. No diverticula are seen. The ileocecal valve is competent. CONCLUSION: Contrast enema performed via colostomy and rectum as above. No high-grade stenoses are seen. No extra vasation of contrast. Daron Duran MD on August 27, 2016 at 10:33 Board Certified Radiologist. This report was verified electronically.
== END ==
LOC: HRAD 09:15
PROVIDERS: ATTEND Surgery Trauma Surgery
DX: Z43.3 Encounter for attention to colostomy (principal)
CPT/HCPCS: 74270

== ENCOUNTER 2017-07-30 15:19 | Emergency (ER) | payer MEDICARE ==
[~2017-07-30] VITALS: Ht 149.9 cm; Wt 80.0 kg
[2017-07-30 15:26] VITALS: BP 195/73; PULSE 70; RESP 16; TEMP 98.5; O2SAT 95
--- NOTE | 2017-07-30 16:36 | PD ---
HPI . Cough and sinus congestion Chief Complaint: Cold / Flu Symptoms Time Seen by Provider: 16:02 Travel History International Travel<30 days: No Contact w/Intl Traveler<30days: No Traveled to known affect area: No History of Present Illness HPI Patient presents with a one-week history of cough and sinus congestion. She states that she called her primary care doctor's office today but the doctor is out of town. She states that she figured that she will probably need a chest x- ray so decided to come here. She has not been running a fever. Her cough is exacerbated when she lays down. She is not short of breath. She does not have chest pain. She does report sinus congestion and occasional purulent rhinorrhea. She states that she has taken some noun-lhl-ulsevde cold medication without relief of her symptoms. [facility] Past Medical History Cardiovascular Problems: Yes (HTN) Diminished Hearing: No Hypertension: Yes Respiratory: Yes (Asthma ) Menopausal: Yes Past Surgical History Gynecologic Surgery: Yes (RIGHT OVARY REMOVED) Hysterectomy: Yes Tonsillectomy: Yes Social History Alcohol Use: Yes (SOCIAL) Tobacco Use: No Substance Use: No Allergies-Medications (Allergen,Severity, Reaction): Coded Allergies: penicillin G (Unverified Allergy, Severe, Anaphylaxis, 07/30/17) latex (Unverified Allergy, Intermediate, ITCH/RASH, 07/30/17) Reported Meds & Prescriptions Reported Meds & Active Scripts Active Reported Atenolol 50 Mg Tab 50 Mg PO DAILY Review of Systems Except as stated in HPI: all other systems reviewed are Neg General / Constitutional: No: Fever, Chills HENT: Positive: Congestion Cardiovascular: No: Chest Pain or Discomfort Respiratory: Positive: Cough, No: Shortness of Breath Physical Exam Narrative GENERAL: Awake and alert. She looks comfortable. SKIN: warm/dry. Normal color. HEAD: Normocephalic. Atraumatic. EYES: Pupils equal and round. No scleral icterus. No injection or drainage. ENT: Oropharynx is clear. Sinuses are nontender to percussion. Nasal turbinates are very mildly edematous. NECK: Trachea midline. Full range of motion without pain.. CARDIOVASCULAR: Regular rate and rhythm. Heart sounds are normal. RESPIRATORY: No accessory muscle use. Clear to auscultation. Breath sounds equal bilaterally. GASTROINTESTINAL: Abdomen soft. Nontender. Bowel sounds present. Nondistended. MUSCULOSKELETAL: No obvious deformities. NEUROLOGICAL: Awake and alert. No obvious cranial nerve deficits. Motor grossly within normal limits. Normal speech. PSYCHIATRIC: Appropriate mood and affect; insight and judgment normal. Data Data Last Documented VS Vital Signs Date Time Temp Pulse Resp B/P (MAP) Pulse Ox O2 Delivery O2 Flow Rate FiO2 07/30/17 15:39 18 07/30/17 15:26 98.5 70 195/73 (113) 95 MDM Medical Decision Making Medical Screen Exam Complete: Yes Emergency Medical Condition: Yes Differential Diagnosis Differential diagnosis includes but is not limited to viral respiratory illness , bronchitis, pneumonia, allergies, CHF, asthma/COPD. Narrative Course This patient presents with nasal congestion and cough. Her physical exam is unremarkable. Her respiratory rate is 16 with an oxygen saturation on room air of 95%. Her lungs are clear. I have explained to the patient that this symptom complex is almost always viral. Therefore, it is most appropriately treated symptomatically. Diagnosis Primary Impression: Upper respiratory infection Qualified Codes: J06.9 - Acute upper respiratory infection, unspecified Patient Instructions: General Instructions, Upper Respiratory Infection (DC) Additional Instructions: I recommend the use of a Neti Pot. You may use a nasal spray such as Afrin for up to 3 days as needed for nasal congestion. You may take an vhzb-vkg-ioiyqun antihistamine such as Zyrtec, Linda or Claritin as needed for runny secretions. You may take pseudoephedrine as needed for congestion. You will need to sign for this at the pharmacy. You may take plain Mucinex, 1200 mg twice a day as needed for thick secretions. You may take a cough syrup such as Delsym as needed for cough. Motrin as needed for fever and body aches. Throat lozenges/sprays as needed for sore throat. Warm salt water gargles for sore throat. Hot tea with lemon and honey also helps soothe a sore throat. Disposition: 01 DISCHARGE HOME Condition: Stable Lakshmi Gentile MD Jul 30, 2017 16:36
== END 2017-07-30 17:03 | disposition home or self-care (01) ==
LOC: PHED 15:19
DX: J06.9 Acute upper respiratory infection, unspecified (principal); I10 Essential (primary) hypertension
CPT/HCPCS: 99282